=== PATIENT | female | born 1950 | race Caucasian/White ===

== ENCOUNTER → 2016-08-21 | Outpatient (CLI) | payer OTHER ==
[~2016-08-21] MED LIST: AMIT25TA9 PO; AMOX875T PO; CHOL1CAP30 PO; FENO145T26 PO; FLUT1INH PO; METO25TA3 PO; TRAM-10 PO; TRIA37.5 PO
--- NOTE | 2016-08-21 10:42 | DIAGNOSTIC IMAGING REPORT ---
RENAL ULTRASONOGRAPHY CLINICAL HISTORY: Chronic kidney disease. COMPARISON STUDY: No previous studies for comparison. FINDINGS: The right kidney measures 8.8 cm in length. Left kidney measures 8.5 cm in length. There is a 1 cm lower pole right renal cyst. There is no hydronephrosis. There is minor bilateral renal cortical thinning. No bladder abnormalities are visualized. Bilateral ureteral jets are visualized. IMPRESSION: 1. Symmetric renal size and cortical thickness 2. 1 cm left renal cyst 3. No evidence of hydronephrosis Electronically signed by: Kole Waller M.D. 08/21/2016 10:40 AM Dictated Date/Time: 08/21/2016 10:38 AM
== END | disposition home or self-care (01) ==
LOC: C.ULTR 10:07
PROVIDERS: ATTEND Internal Medicine Nephrology
DX: N18.3 Chronic kidney disease, stage 3 (moderate) (principal); N28.1 Cyst of kidney, acquired

== ENCOUNTER → 2016-09-15 | Outpatient (CLI) | payer OTHER ==
[2016-09-15 12:17] LABS: URINE APPEARANCE CLEAR (CLEAR); URINE BILIRUBIN NEG (NEG); URINE COLOR YELLOW; URINE NITRITE NEG (NEG); URINE PH 7.5 (4.5-7.5); URINE SPECIFIC GRAVITY 1.015 (1.000-1.030); UROBILINOGEN NEG (NEG)
[2016-09-15 12:27] LABS: MANUAL MICROSCOPIC REQUIRED? NO; REVIEW REQ? NO
[2016-09-15 12:33] LABS: BLOOD UREA NITROGEN 27 mg/dl (7-18); BUN/CREATININE RATIO 19.4 (10-20); CARBON DIOXIDE 29 mmol/L (21-32); CHLORIDE 105 mmol/L (98-107); GLUCOSE 94 mg/dl (70-99); SODIUM 142 mmol/L (136-145)
[2016-09-15 12:34] LABS: PHOSPHORUS 2.9 mg/dl (2.5-4.9)
[2016-09-15 12:55] LABS: URINE PROTIEN/CREAT RATIO 0.1 (0-0.2); URINE TOTAL PROTEIN 10.8 mg/dl (0-11.9)
[2016-09-15 14:40] LABS: CALCIUM 9.6 mg/dl (8.5-10.1)
== END | disposition home or self-care (01) ==
LOC: C.LABPBG 10:32
PROVIDERS: ATTEND Internal Medicine Nephrology
DX: N18.3 Chronic kidney disease, stage 3 (moderate) (principal)

== ENCOUNTER → 2016-10-28 | Outpatient (CLI) | payer OTHER ==
[2016-10-28 18:37] LABS: BLOOD UREA NITROGEN 22 mg/dl (7-18); BUN/CREATININE RATIO 14.3 (10-20); CALCIUM 9.8 mg/dl (8.5-10.1); CARBON DIOXIDE 26 mmol/L (21-32); CHLORIDE 106 mmol/L (98-107); GLUCOSE 90 mg/dl (70-99); POTASSIUM 3.7 mmol/L (3.5-5.1); SODIUM 139 mmol/L (136-145)
[2016-10-28 18:38] LABS: PHOSPHORUS 2.9 mg/dl (2.5-4.9)
== END | disposition home or self-care (01) ==
LOC: C.LABPBG 11:40
PROVIDERS: ATTEND Neuromusculoskeletal Medicine & OMM
DX: N18.3 Chronic kidney disease, stage 3 (moderate) (principal); E55.9 Vitamin D deficiency, unspecified; R53.83 Other fatigue; E53.8 Deficiency of other specified B group vitamins

== ENCOUNTER 2017-03-20 11:49 | Emergency (ER) | payer OTHER ==
[~2017-03-20] VITALS: Ht 157.5 cm; Wt 61.0 kg
[2017-03-20 12:03] VITALS: TEMP 36.4; Ht 157.5 cm; Wt 61.0 kg
[2017-03-20] MEDS ORDERED: ONDANSETRON INJ 2 MG/ML 2 ML VIAL IV STA (12:48)
[2017-03-20] MEDS ORDERED: MoRPHine SULFATE 4 MG/ML 1 ML CARP\\VIAL IV STA ×2 (12:48→13:35)
[2017-03-20] MEDS ORDERED: FENO145T26 PO (12:58)
[2017-03-20] MEDS ORDERED: TRIA37.5 PO (12:58)
[2017-03-20] MEDS ORDERED: AMIT25TA9 PO (12:58)
[2017-03-20] MEDS ORDERED: CHOL1CAP30 PO (12:58)
[2017-03-20] MEDS ORDERED: FLUT1INH PO (12:58)
[2017-03-20] MEDS ORDERED: METO25TA3 PO (12:58)
[2017-03-20 13:06] LABS: BASO % 0.4 %; BASO ABS # 0.03 K/uL (0-0.2); COMPLETE YES; EOS % 0.6 %; HEMATOCRIT 36.9 % (37-47); IG% 0.3 %; LYMPH % 34.6 %; LYMPH ABS # 2.48 K/uL (1.2-3.4); MEAN CELL VOLUME 90.2 fL (80-100); MEAN CORPUSCULAR HEMOGLOBIN 32.5 pg (25-34); MONO % 6.4 %; NEUT % 57.7 %; PLATELET COUNT 226 K/uL (130-400); RED BLOOD COUNT 4.09 M/uL (4.2-5.4); WHITE BLOOD COUNT 7.17 K/uL (4.8-10.8)
--- NOTE | 2017-03-20 13:14 | EMERGENCY ROOM VISIT NOTE ---
History Report prepared by Anita: Willem Benavides Under the Supervision of: Dr. Placido Pressley M.D. First contact with patient: 12:36 Chief Complaint: BACK PAIN Stated Complaint: BACK PAIN History of Present Illness The patient is a 66 year old female who presents to the Emergency Room with complaints of worsening left back pain for the past five days. She states that she was putting in countertops this week, so she was bent over in odd positions. The patient reports that she has been taking Tylenol and using a heating pad, and this has helped subside the pain. She denies any shortness of breath, urinary symptoms, chest pain, or recent traumas. The patient notes that her hands also went numb a few days ago, and the pain is not worsened with breathing. She has a history of stage 3 kidney disease, emphysema, hysterectomy , cholecystectomy, cyst removal from the breast, a bowel resection due to a blockage, mitral valve prolapse, and arrhythmia. The patient denies any history of kidney stones, cancer, diabetes, and she does not use any blood thinners. Source of History: patient Onset: five days ago Position: back (left) Timing: worsening Modifying Factors (Worsening): other (heat and tylenol) Associated Symptoms: + numbness, No chest pain, No SOB, No urinary symptoms Review of Systems See HPI for pertinent positives & negatives. A total of 10 systems reviewed and were otherwise negative. Past Medical & Surgical Medical Problems: (1) Arrhythmia (2) Emphysema (3) Kidney disease, chronic, stage III (GFR 30-59 ml/min) (4) Mitral valve prolapse Surgical Problems: (1) H/O: hysterectomy (2) History of bowel resection (3) Hx of cholecystectomy Old medical records were reviewed. Nurse's notes were reviewed and I agree with. Social History Smoking Status: Former Smoker Alcohol Use: none Drug Use: none Marital Status: Occupation Status: retired Current/Historical Medications Scheduled Amoxicillin & Pot Clavulanate (Augmentin 875-125 mg), 875 MG PO BID Cholecalciferol (Vitamin D3), 400 UNITS PO DAILY Fenofibrate (Tricor ), 145 MG PO DAILY Metoprolol Succinate (Toprol Xl), 25 MG PO DAILY Triamterene/Hctz (Dyazide 37.5MG/25MG), 1 TAB PO DAILY Scheduled PRN Amitriptyline Hcl (Elavil), 25 MG PO TID PRN for . Fluticasone Furoate-Vilanterol (Breo Ellipta), 1 INHA PO DAILY PRN for SOB/ Wheezing Tramadol (Ultram), 50 MG PO Q6H PRN for Pain Allergies Coded Allergies: Potassium [place] (Verified Allergy, Unknown, ., 03/20/17) Prednisone (Verified Allergy, Unknown, ., 03/20/17) Ranitidine (Verified Allergy, Unknown, ., 03/20/17) Tartrazine (Verified Allergy, Unknown, ., 03/20/17) Tetanus Toxoid (Verified Allergy, Unknown, ANAPHYLAXIS, 03/20/17) Tiotropium (Verified Allergy, Unknown, ., 03/20/17) Varenicline (Verified Allergy, Unknown, ., 03/20/17) Ibuprofen (Verified Adverse Reaction, Unknown, GI SYMPTOMS, 03/20/17) Physical Exam Vital Signs Date Time Temp Pulse Resp B/P (MAP) Pulse Ox O2 Delivery O2 Flow Rate FiO2 03/20/17 16:45 68 18 133/76 100 03/20/17 15:39 65 16 171/81 100 03/20/17 14:31 160/85 03/20/17 14:19 63 16 90 03/20/17 14:01 170/83 03/20/17 13:54 168/85 03/20/17 13:49 20 03/20/17 13:34 63 03/20/17 13:29 63 18 194/85 100 Room Air 03/20/17 13:28 194/85 03/20/17 12:03 36.4 66 18 154/92 100 Room Air Physical Exam General: Uncomfortable appearing older female complaining of back pain. HEENT: Normal cephalic atraumatic. Pupils are equal round and reactive to light. Extraocular movements are intact. Oropharynx is pink with moist mucous membranes. No swelling of the mouth lips or tongue. Neck: Supple with a midline trachea. No meningeal signs or stiffness, no JVD or bruits. No Stridor. Chest: Clear to auscultation bilaterally. No wheezes or rhonchi. No increased work of breathing. Heart: regular rate and rhythm. Abdomen: Soft nontender, nondistended without rebound guarding or rigidity. Extremities: No cyanosis clubbing or edema. No calf tenderness or assymetry Spine/Back. Tenderness in the muscle areas of the left thoracic area into the left flank. No rash or external signs of trauma. No CVA tenderness Skin: Good turgor without rashes. Neurologic exam: Cranial nerves two through 12 are intact. Motor and sensation are intact and symmetrical throughout. Medical Decision & Procedures ER Provider Diagnostic Interpretation: Radiology results as stated below per my review and radiologist interpretation: CHEST ABDOMEN AND PELVIS CT WITHOUT CONTRAST CT DOSE: 736.90 mGy.cm HISTORY: Left-sided back pain. eval for pulm porocess, spinal process. Left flank pain. TECHNIQUE: Multiaxial CT images of the chest, abdomen and pelvis were performed without contrast. A dose lowering technique was utilized adhering to the principles of ALARA. COMPARISON: Renal ultrasound 08/21/2016. FINDINGS: The heart is normal in size. No pleural or pericardial effusions. No mediastinal or hilar lymphadenopathy. Normal caliber thoracic aorta. Paraspinal soft tissues are unremarkable. No acute fractures within the visualized osseous structures. Biapical scarlike densities. The central airways are patent. No pneumothorax. Mild emphysema. A 1.7 cm focal airspace opacity within the base of the lingula. Punctate calcified granulomas within the right upper lobe. The T2-T3 vertebral bodies and posterior elements are fused. No pneumoperitoneum. No pneumatosis. Cholecystectomy. The unenhanced liver, spleen, adrenal glands, and pancreas are unremarkable. No renal or ureteral stones. No hydronephrosis. The bladder is unremarkable. The uterus is surgically absent. Paraspinal soft tissues are unremarkable. A few duodenal diverticula. Suboptimal evaluation for bowel pathology due to the lack of intravenous and oral contrast. However, there is no definite bowel wall thickening or obstruction. Colonic diverticulosis. The appendix is not identified and is likely surgically absent. No retroperitoneal lymphadenopathy. A 1 cm left renal hypodense lesion. This is incompletely characterize on this noncontrast study but favors a cyst. IMPRESSION: 1. A 1.7 cm focal airspace opacity within the periphery of the lingula. This nonspecific and could be due to developing pneumonia. However, a pulmonary infarct could also have a similar appearance. If there is clinical concern for pulmonary embolus then follow-up dedicated chest CTA is recommended. 2. No acute process identified within the abdomen or pelvis. 3. No abnormality within the paraspinal soft tissues. Electronically signed by: Faisal Lagos M.D. 03/20/2017 2:56 PM Dictated Date/Time: 03/20/2017 1:54 PM CHEST ABDOMEN AND PELVIS CT WITHOUT CONTRAST CT DOSE: 736.90 mGy.cm HISTORY: Left-sided back pain. eval for pulm porocess, spinal process. Left flank pain. TECHNIQUE: Multiaxial CT images of the chest, abdomen and pelvis were performed without contrast. A dose lowering technique was utilized adhering to the principles of ALARA. COMPARISON: Renal ultrasound 08/21/2016. FINDINGS: The heart is normal in size. No pleural or pericardial effusions. No mediastinal or hilar lymphadenopathy. Normal caliber thoracic aorta. Paraspinal soft tissues are unremarkable. No acute fractures within the visualized osseous structures. Biapical scarlike densities. The central airways are patent. No pneumothorax. Mild emphysema. A 1.7 cm focal airspace opacity within the base of the lingula. Punctate calcified granulomas within the right upper lobe. The T2-T3 vertebral bodies and posterior elements are fused. No pneumoperitoneum. No pneumatosis. Cholecystectomy. The unenhanced liver, spleen, adrenal glands, and pancreas are unremarkable. No renal or ureteral stones. No hydronephrosis. The bladder is unremarkable. The uterus is surgically absent. Paraspinal soft tissues are unremarkable. A few duodenal diverticula. Suboptimal evaluation for bowel pathology due to the lack of intravenous and oral contrast. However, there is no definite bowel wall thickening or obstruction. Colonic diverticulosis. The appendix is not identified and is likely surgically absent. No retroperitoneal lymphadenopathy. A 1 cm left renal hypodense lesion. This is incompletely characterize on this noncontrast study but favors a cyst. IMPRESSION: 1. A 1.7 cm focal airspace opacity within the periphery of the lingula. This nonspecific and could be due to developing pneumonia. However, a pulmonary infarct could also have a similar appearance. If there is clinical concern for pulmonary embolus then follow-up dedicated chest CTA is recommended. 2. No acute process identified within the abdomen or pelvis. 3. No abnormality within the paraspinal soft tissues. Electronically signed by: Faisal Lagos M.D. 03/20/2017 2:56 PM Dictated Date/Time: 03/20/2017 1:[address] ANGIOGRAM OF THE CHEST CLINICAL HISTORY: Atypical chest and back pain. ABNORMAL NONCONTRAST CHEST CT. COMPARISON STUDY: Noncontrast chest CT performed earlier in the day TECHNIQUE: Following the IV administration of 81 mL of Optiray-320, CT angiogram of the thorax was performed from the thoracic inlet to the lung bases utilizing the pulmonary embolus protocol. Images are reviewed in the axial, sagittal, and coronal planes. IV contrast was administered without complication. MIP imaging was performed. A dose lowering technique was utilized adhering to the principles of ALARA. CT DOSE: 202.10 mGy.cm FINDINGS: No pathologically enlarged axillary mediastinal or hilar lymph nodes were visualized. There was no evidence of thoracic aortic dilatation. There were no pulmonary artery filling defects to indicate acute pulmonary embolism. No pleural effusions are visualized. There is a 17 mm nodular pleural-based airspace opacity within the inferior lingula. Short-term follow-up subsequent to antibiotic therapy is recommended. There is pulmonary emphysema. There is biapical pleural and parenchymal scarring. IMPRESSION: 1. No evidence of acute pulmonary embolism 2. No evidence of pathologic adenopathy 3. 17 mm pleural-based opacity within the base of the lingula. Short-term CT follow-up subsequent antibiotic therapy is recommended. Electronically signed by: Kole Waller M.D. 03/20/2017 3:48 PM Dictated Date/Time: 03/20/2017 3:41 PM Laboratory Results 03/20/17 12:50 Red Blood Count 4.09, Mean Corpuscular Volume 90.2, Mean Corpuscular Hemoglobin 32.5, Mean Corpuscular Hemoglobin Concent 36.0, Mean Platelet Volume 10.0, Neutrophils (%) (Auto) 57.7, Lymphocytes (%) (Auto) 34.6, Monocytes (%) (Auto) 6.4, Eosinophils (%) (Auto) 0.6, Basophils (%) (Auto) 0.4, Neutrophils # (Auto) 4.14, Lymphocytes # (Auto) 2.48, Monocytes # (Auto) 0.46, Eosinophils # (Auto) 0.04, Basophils # (Auto) 0.03 03/20/17 12:50 Test 03/20/17 12:20 03/20/17 12:50 03/20/17 12:57 Urine Color YELLOW Urine Appearance CLEAR (CLEAR) Urine pH 8.5 (4.5-7.5) Urine Specific [place] 1.013 (1.000-1.030) Urine Protein NEG (NEG) Urine Glucose (UA) NEG (NEG) Urine Ketones NEG (NEG) Urine Occult Blood NEG (NEG) Urine Nitrite NEG (NEG) Urine Bilirubin NEG (NEG) Urine Urobilinogen NEG (NEG) Urine Leukocyte Esterase NEG (NEG) White Blood Count 7.17 K/uL (4.8-10.8) Red Blood Count 4.09 M/uL (4.2-5.4) Hemoglobin 13.3 g/dL (12.0-16.0) Hematocrit 36.9 % (37-47) Mean Corpuscular Volume 90.2 fL (80-100) Mean Corpuscular Hemoglobin 32.5 pg (25-34) Mean Corpuscular Hemoglobin Concent 36.0 g/dl (32-36) Platelet Count 226 K/uL (130-400) Mean Platelet Volume 10.0 fL (7.4-10.4) Neutrophils (%) (Auto) 57.7 % Lymphocytes (%) (Auto) 34.6 % Monocytes (%) (Auto) 6.4 % Eosinophils (%) (Auto) 0.6 % Basophils (%) (Auto) 0.4 % Neutrophils # (Auto) 4.14 K/uL (1.4-6.5) Lymphocytes # (Auto) 2.48 K/uL (1.2-3.4) Monocytes # (Auto) 0.46 K/uL (0.11-0.59) Eosinophils # (Auto) 0.04 K/uL (0-0.5) Basophils # (Auto) 0.03 K/uL (0-0.2) RDW Standard Deviation 40.3 fL (36.4-46.3) RDW Coefficient of Variation 12.4 % (11.5-14.5) Immature Granulocyte % (Auto) 0.3 % Immature Granulocyte # (Auto) 0.02 K/uL (0.00-0.02) Anion Gap 11.0 mmol/L (3-11) Est Creatinine Clear Calc Drug Dose 34.8 ml/min Estimated GFR () 47.5 Estimated GFR (Non- 41.0 BUN/Creatinine Ratio 15.9 (10-20) Calcium Level 10.2 mg/dl (8.5-10.1) Total Bilirubin 0.9 mg/dl (0.2-1) Direct Bilirubin 0.2 mg/dl (0-0.2) Aspartate Amino Transf (AST/SGOT) 22 U/L (15-37) Alanine Aminotransferase (ALT/SGPT) 23 U/L (12-78) Alkaline Phosphatase 106 U/L (45-117) Total Protein 8.6 gm/dl (6.4-8.2) Albumin 4.8 gm/dl (3.4-5.0) Lipase 122 U/L (73-393) Bedside Troponin I < 0.030 ng/ml (0-0.045) Laboratory studies as stated above per my review. Medications Administered Medications (Trade) Dose Ordered Sig/Elie Route Start Time Stop Time Status Last Admin Dose Admin Morphine Sulfate (MoRPHine SULFATE INJ) 4 mg NOW STAT IV 03/20/17 12:48 03/20/17 12:52 DC 03/20/17 13:03 4 MG Ondansetron HCl (Zofran Inj) 4 mg NOW STAT IV 03/20/17 12:48 03/20/17 12:52 DC 03/20/17 13:02 4 MG Morphine Sulfate (MoRPHine SULFATE INJ) 4 mg NOW STAT IV 03/20/17 13:35 03/20/17 13:36 DC 03/20/17 13:46 4 MG Potassium Chloride (Klor-Con M10) 40 meq NOW STAT PO 03/20/17 13:36 03/20/17 13:38 DC 03/20/17 13:45 40 MEQ Amoxicillin/ Clavulanate Potassium (Augmentin 875MG Home Pack) 1 homepack UD ONCE PO 03/20/17 16:30 03/20/17 16:37 DC 03/20/17 16:42 1 HOMEPACK Tramadol HCl (Ultram Home Pack) 1 homepack UD ONCE PO 03/20/17 16:30 03/20/17 16:37 DC 03/20/17 16:42 1 HOMEPACK ECG Indication: back/shoulder pain Rate (beats per minute): 63 Rhythm: normal sinus Findings: RBBB (incomplete), no acute ischemic change, no ectopy ED Course 1236: Past medical records reviewed. The patient was evaluated in room A4, and a complete history and physical examination were performed. 1248: Zofran 4mg IV, Morphine Sulfate 4mg IV 1317: I went to reevaluate the patient, and she was over at CT scan. 1335: Morphine Sulfate 4mg IV 1336: Potassium Chloride 40meq PO 1339: I reevaluated the patient, and she is having more pain. 1527: I reevaluated the patient, and I explained the risks and benefits of getting more CT scans, and she was agreeable. 1625: Upon reevaluation, the patient is feeling better. I discussed the results and treatment plan with her. She verbalized agreement of the treatment plan. The patient was discharged home. 1630: Tramadol HCl 1 Home Pack PO, Augmentin 875mg Home Pack PO Medical Decision Differentials include, but are not limited to; musculoskeletal pain, kidney stone, shingles, electrolyte or metabolic abnormality. This patient comes in as described above. She was placed in room A4. She is here for treatment and evaluation of pain in her left back. She was doing a lot of bending recently when they're placing counters and there is no trauma does extend into the abdomen at times and goes up higher and lower. No chest pain or shortness of breath. No trauma. No numbness weakness. She has to suggest change in bowel or bladder function or cauda equina syndrome. IV access established. She is not driving. She was given morphine 4 mg IV and Zofran 4 milligrams IV. She required additional IV morphine. She has no white count or fever to suggest infection. Her potassium was low at 2.9. She was repleted by mouth. CAT scans were obtained. Urinalysis does not suggest a urinary process. CAT scans show no acute traumatic finding however she does have a small area in the lingula which could be pneumonia or possibly a pulmonary infarct they recommended a CT angiogram. I did extend the risk and benefits patient family freely consent it shows no PE. I will start on antibiotics for the possibility of an early pneumonia. She has had COPD and could be some scarring. She is given Augmentin 875 twice a day. She has had Ultram before and I gave her prescription for this for pain she was warned that it could make her drowsy, do not take before drinking, driving, working. She has nothing to suggest cardiac disease and her EKG is unremarkable. I think most of her pain today is actually more musculoskeletal. I did encourage close follow-up on Wednesday for recheck or return here over the weekend for worsening symptoms. She should increase her dietary potassium. She was happy with the plan and discharged to home. Medication Reconcilliation Current Medication List: was personally reviewed by me Blood Pressure Screening Patient's blood pressure: Elevated blood pressure Blood pressure disposition: Referred to PCP Impression Primary Impression: Left flank pain Additional Impression: Pneumonia Scribe Attestation The scribe's documentation has been prepared under my direction and personally reviewed by me in its entirety. I confirm that the note above accurately reflects all work, treatment, procedures, and medical decision making performed by me. Departure Information Dispostion Home / Self-Care Prescriptions Tramadol (Ultram) 50 Mg Tab 50 MG PO Q6H Y for Pain, #14 TAB Prov: Placido Pressley M.D. 03/20/17 Amoxicillin & Pot Clavulanate (Augmentin 875-125 mg) 1 Tab Tab 875 MG PO BID for 10 Days, #20 TAB Prov: Placido Pressley M.D. 03/20/17 Referrals Naz Harper DO (PCP) Forms HOME CARE DOCUMENTATION FORM, IMPORTANT VISIT INFORMATION Patient Instructions My [facility] Additional Instructions Rest Drink plenty of fluids Use Augmentin 875 mg twice a day for 10 daysantibiotic for possible pneumonia You will need follow-up with her regular doctor and will need a follow-up CAT scan in the future to further evaluate your lungs. Use Tramadol (Ultram) 50 mg- 1 pills every 6 hours as needed Ultram make you drowsy and be careful after taking return if: Increasing pain, shortness of breath, fever or chills, worsening symptoms, any new problems or concerns. Problem Qualifiers
[2017-03-20 13:21] LABS: URINE APPEARANCE CLEAR (CLEAR); URINE BILIRUBIN NEG (NEG); URINE COLOR YELLOW; URINE NITRITE NEG (NEG); URINE PH 8.5 (4.5-7.5); URINE SPECIFIC GRAVITY 1.013 (1.000-1.030); UROBILINOGEN NEG (NEG)
[2017-03-20 13:23] LABS: MANUAL MICROSCOPIC REQUIRED? NO; REVIEW REQ? NO
[2017-03-20 13:28] LABS: BUN/CREATININE RATIO 15.9 (10-20); CALCIUM 10.2 mg/dl (8.5-10.1); CREATININE 1.33 mg/dl (0.60-1.20); POTASSIUM 2.9 mmol/L (3.5-5.1)
[2017-03-20] MEDS ORDERED: POTASSIUM CHLORIDE 10 MEQ TABCR PO STA (13:36)
--- NOTE | 2017-03-20 14:58 | DIAGNOSTIC IMAGING REPORT ---
CHEST ABDOMEN AND PELVIS CT WITHOUT CONTRAST CT DOSE: 736.90 mGy.cm HISTORY: Left-sided back pain. eval for pulm porocess, spinal process. Left flank pain. TECHNIQUE: Multiaxial CT images of the chest, abdomen and pelvis were performed without contrast. A dose lowering technique was utilized adhering to the principles of ALARA. COMPARISON: Renal ultrasound 08/21/2016. FINDINGS: The heart is normal in size. No pleural or pericardial effusions. No mediastinal or hilar lymphadenopathy. Normal caliber thoracic aorta. Paraspinal soft tissues are unremarkable. No acute fractures within the visualized osseous structures. Biapical scarlike densities. The central airways are patent. No pneumothorax. Mild emphysema. A 1.7 cm focal airspace opacity within the base of the lingula. Punctate calcified granulomas within the right upper lobe. The T2-T3 vertebral bodies and posterior elements are fused. No pneumoperitoneum. No pneumatosis. Cholecystectomy. The unenhanced liver, spleen, adrenal glands, and pancreas are unremarkable. No renal or ureteral stones. No hydronephrosis. The bladder is unremarkable. The uterus is surgically absent. Paraspinal soft tissues are unremarkable. A few duodenal diverticula. Suboptimal evaluation for bowel pathology due to the lack of intravenous and oral contrast. However, there is no definite bowel wall thickening or obstruction. Colonic diverticulosis. The appendix is not identified and is likely surgically absent. No retroperitoneal lymphadenopathy. A 1 cm left renal hypodense lesion. This is incompletely characterize on this noncontrast study but favors a cyst. IMPRESSION: 1. A 1.7 cm focal airspace opacity within the periphery of the lingula. This nonspecific and could be due to developing pneumonia. However, a pulmonary infarct could also have a similar appearance. If there is clinical concern for pulmonary embolus then follow-up dedicated chest CTA is recommended. 2. No acute process identified within the abdomen or pelvis. 3. No abnormality within the paraspinal soft tissues. Electronically signed by: Faisal Lagos M.D. 03/20/2017 2:56 PM Dictated Date/Time: 03/20/2017 1:54 PM
[2017-03-20] MEDS ORDERED: OPTIRAY 320 IV PRN (15:30)
--- NOTE | 2017-03-20 15:49 | DIAGNOSTIC IMAGING REPORT ---
CT ANGIOGRAM OF THE CHEST CLINICAL HISTORY: Atypical chest and back pain. ABNORMAL NONCONTRAST CHEST CT. COMPARISON STUDY: Noncontrast chest CT performed earlier in the day TECHNIQUE: Following the IV administration of 81 mL of Optiray-320, CT angiogram of the thorax was performed from the thoracic inlet to the lung bases utilizing the pulmonary embolus protocol. Images are reviewed in the axial, sagittal, and coronal planes. IV contrast was administered without complication. MIP imaging was performed. A dose lowering technique was utilized adhering to the principles of ALARA. CT DOSE: 202.10 mGy.cm FINDINGS: No pathologically enlarged axillary mediastinal or hilar lymph nodes were visualized. There was no evidence of thoracic aortic dilatation. There were no pulmonary artery filling defects to indicate acute pulmonary embolism. No pleural effusions are visualized. There is a 17 mm nodular pleural-based airspace opacity within the inferior lingula. Short-term follow-up subsequent to antibiotic therapy is recommended. There is pulmonary emphysema. There is biapical pleural and parenchymal scarring. IMPRESSION: 1. No evidence of acute pulmonary embolism 2. No evidence of pathologic adenopathy 3. 17 mm pleural-based opacity within the base of the lingula. Short-term CT follow-up subsequent antibiotic therapy is recommended. Electronically signed by: Kole Waller M.D. 03/20/2017 3:48 PM Dictated Date/Time: 03/20/2017 3:41 PM
[2017-03-20] MEDS ORDERED: TRAMADOL HCL 50 MG HOME PACK PO ONE (16:30)
[2017-03-20] MEDS ORDERED: AMOXICIL/CLAVU 875MG HOME PACK PO ONE (16:30)
[2017-03-20] MEDS ORDERED: TRAM-10 PO (16:34)
[2017-03-20] MEDS ORDERED: AMOX875T PO (16:34)
[2017-03-20 16:45] VITALS: BP 133/76; PULSE 68; O2SAT 100
== END 2017-03-20 16:47 | disposition home or self-care (01) ==
LOC: C.EDB 11:51 → C.EDA 16:47
DX: R10.9 Unspecified abdominal pain (principal); J18.9 Pneumonia, unspecified organism; N18.3 Chronic kidney disease, stage 3 (moderate); I49.9 Cardiac arrhythmia, unspecified; I34.1 Nonrheumatic mitral (valve) prolapse; J43.9 Emphysema, unspecified; Z87.891 Personal history of nicotine dependence; Z79.899 Other long term (current) drug therapy

== ENCOUNTER → 2017-03-23 | Outpatient (CLI) | payer OTHER ==
[2017-03-23 12:04] LABS: MANUAL MICROSCOPIC REQUIRED? NO; URINE APPEARANCE CLEAR (CLEAR); URINE BILIRUBIN NEG (NEG); URINE COLOR YELLOW; URINE NITRITE NEG (NEG); URINE PH 7.5 (4.5-7.5); UROBILINOGEN NEG (NEG)
[2017-03-23 12:15] LABS: REVIEW REQ? NO; SULFASALICYLIC ACID NEG (NEG)
[2017-03-23 12:20] LABS: BLOOD UREA NITROGEN 22 mg/dl (7-18); BUN/CREATININE RATIO 15.4 (10-20); CALCIUM 9.8 mg/dl (8.5-10.1); CARBON DIOXIDE 28 mmol/L (21-32); CHLORIDE 101 mmol/L (98-107); CREATININE 1.43 mg/dl (0.60-1.20); GLUCOSE 97 mg/dl (70-99); MAGNESIUM 1.8 mg/dl (1.8-2.4); POTASSIUM 3.7 mmol/L (3.5-5.1); SODIUM 137 mmol/L (136-145)
== END | disposition home or self-care (01) ==
LOC: C.LABPBG 10:07
PROVIDERS: ATTEND Family Medicine
DX: N18.3 Chronic kidney disease, stage 3 (moderate) (principal); E87.6 Hypokalemia

== ENCOUNTER → 2017-04-16 | Outpatient (CLI) | payer OTHER ==
[~2017-04-16] MED LIST changes: -AMOX875T PO
--- NOTE | 2017-04-16 10:34 | DIAGNOSTIC IMAGING REPORT ---
(CHEST) THORAX WITHOUT CT DOSE: 226.40 mGy.cm HISTORY: Lung nodule R93.8 Abnormal chest [id number] TECHNIQUE: Multiaxial CT images of the chest were performed without contrast. A dose lowering technique was utilized adhering to the principles of ALARA. COMPARISON: 03/20/2017 FINDINGS: Unchanging pleural and parenchymal scarring of the pulmonary apices. Calcified granuloma transaxial image 14 unchanged. No change in the 17 mm irregular nodular density base of the lingula area in there are no new or interval changes. There are no new findings. Limited evaluation the upper abdomen shows evidence for prior cholecystectomy. IMPRESSION: 1. Unchanging 17 mm irregular nodular density of the lingula. 2. The remainder of the chest is negative. 3. Considerations must include the possibility of pulmonary infarct, inflammatory process, versus neoplastic process. 4. Potential follow-up includes a short-term CT follow-up at 4 to 8 weeks, PET scan, versus bronchoscopy. The above report was generated using voice recognition software. It may contain grammatical, syntax or spelling errors. Electronically signed by: Bossman Leon M.D. 04/16/2017 10:26 AM Dictated Date/Time: 04/16/2017 10:20 AM
== END | disposition home or self-care (01) ==
LOC: C.CTS 09:11
PROVIDERS: ATTEND Family Medicine
DX: R93.8 Abnormal findings on diagnostic imaging of other specified body structures (principal); R91.8 Other nonspecific abnormal finding of lung field

== ENCOUNTER → 2017-07-07 | Outpatient (CLI) | payer OTHER ==
[~2017-07-07] MED LIST changes: -METO25TA3 PO; +METO25TA4 PO
--- NOTE | 2017-07-07 13:55 | DIAGNOSTIC IMAGING REPORT ---
PET/CT SKULL-THIGH HISTORY: Lung nodule SOLITARY PULMONARY NODULE TECHNIQUE: PET/CT was performed from the base of the skull through the pelvis following the intravenous administration of 15.4 mCi of F18-FDG. Non-contrast CT imaging was performed over the same range without breath-hold for attenuation correction of PET images and anatomic correlation, but not for primary interpretation as it is not of standard diagnostic quality. CT DOSE: COMPARISON: CT chest dated 03/20/2017. CT abdomen and pelvis dated 06/07/2012. FINDINGS: HEAD AND NECK: There is no FDG-avid disease or significant lymphadenopathy in the imaged portions of the head and the neck. CHEST: Apical fibrotic scarring showing no significant increase in metabolic activity. Physiologic activity within the myocardium. No abnormal hilar or mediastinal activity. The nodular density within the lingula shows a low level increased activity with an SUV of 1.5. As this appears to represent a slowly growing nodular density as compared to the prior study at 2012, possibly of a low grade neoplastic process must be considered. No additional foci of increased metabolic activity are noted. ABDOMEN/PELVIS: Below the diaphragm, tracer is distributed physiologically in the gastrointestinal and genitourinary tracts. There is no significant lymphadenopathy and no FDG-avid disease. MUSCULOSKELETAL: Minimal scattered degenerative activity. No evidence based on this study for metastatic bone disease. IMPRESSION: 1. 1.5 x 1.7 cm nodular density within the lingula demonstrates a minimal increase in SUV activity characteristics at 1.5 2. Correlation with prior studies dated 2016 as well as outside CT exams dated 2012 demonstrate a slowly progressive nodular process. 3. Accordingly, this nodule must be considered a slow-growing low-grade neoplastic process until proven otherwise. 4. Remainder the study is unremarkable. The above report was generated using voice recognition software. It may contain grammatical, syntax or spelling errors. Electronically signed by: Bossman Leon M.D. 07/07/2017 1:53 PM Dictated Date/Time: 07/07/2017 1:39 PM
== END | disposition home or self-care (01) ==
LOC: C.PET 10:38
PROVIDERS: ATTEND Internal Medicine Critical Care Medicine
DX: R91.1 Solitary pulmonary nodule (principal)

== ENCOUNTER → 2017-08-02 | Outpatient (CLI) | payer OTHER ==
[~2017-08-02] MED LIST changes: +ALBUAER INH; +CHOL1000 PO; +CRFL PO; +FLUT0.15 INTNAS; +FLUT1INH INH; +GADAVIST IV PRN; +HALO0.0510 TOP; +MECL1TAB40 PO; +TRIATAB3 PO
[2017-08-02 15:18] LABS: BLOOD UREA NITROGEN 29 mg/dl (7-18); CREATININE 1.43 mg/dl (0.60-1.20)
--- NOTE | 2017-08-02 15:51 | DIAGNOSTIC IMAGING REPORT ---
MRI OF THE BRAIN WITHOUT AND WITH IV CONTRAST CLINICAL HISTORY: Lung nodule. Evaluate for metastatic disease. COMPARISON STUDY: No previous studies for comparison. TECHNIQUE: Utilizing a 1.5 Linda magnet and dedicated coil, multiplanar, multiecho imaging of the brain was performed pre and postcontrast administration. IV administration of 5.8 mL of Gadavist contrast was uneventful. FINDINGS: There are no foci of restricted diffusion. No acute intracranial hemorrhage, midline shift or mass effect is present. Brain volume is normal for age. Ventricular system is normal. Basilar cisterns are patent. There are no extra-axial collections. Flow-voids for the major intracranial vessels are present. There is no intracranial mass or pathologic enhancement. Scattered white matter T2 hyperintense foci suggest mild small vessel disease. There are no calvarial lesions. Sinuses and orbits are unremarkable. IMPRESSION: 1. No evidence of metastatic disease. 2. Several white matter T2 hyperintense foci which suggest minimal small vessel disease. Electronically signed by: Toni Will M.D. 08/02/2017 3:50 PM Dictated Date/Time: 08/02/2017 3:46 PM
== END | disposition home or self-care (01) ==
LOC: C.MRIBC 12:02
PROVIDERS: ATTEND Physician Assistant
DX: R91.1 Solitary pulmonary nodule (principal); N18.3 Chronic kidney disease, stage 3 (moderate); R93.8 Abnormal findings on diagnostic imaging of other specified body structures

== ENCOUNTER 2017-09-01 09:47 | Inpatient (IN) | payer OTHER ==
[2017-08-04 14:55] VITALS: BMI 22.0
[2017-08-04 15:14] VITALS: Ht 162.6 cm; Wt 59.4 kg
--- NOTE | 2017-08-04 15:34 | PAT Medication Instructions ---
Service Date Aug 04, 2017. Current Home Medication List Albuterol Sulfate (Proventil Hfa), 2 PUFFS INH PRN Amitriptyline Hcl (Elavil), 25 MG PO TID PRN for . Cholecalciferol (Vitamin D3), 1 TAB PO QAM Fluticasone Furoate-Vilanterol (Breo Ellipta), 1 PUFF INH QAM Fluticasone Propionate (Nasal) (Flonase Allergy Relief), 2 SPRAYS INTNAS QAM Halobetasol Propionate (Halobetasol Propionate), 1 DOSE TOP PRN Meclizine HCl (Meclizine HCl), 1 TAB PO BID PRN for RN Metoprolol Succinate (Toprol Xl), 25 MG PO QAM Sucralfate (Carafate), 10 ML PO QID Tramadol (Ultram), 50 MG PO Q6H PRN for RN Triamterene/Hctz (Triamterene/Hctz 37.5-25MG), 1 TAB PO QAM Medication Instructions For Your Scheduled Surgery - Hold the following medications 24 hours prior to surgery: Halobetasol Propionate (Halobetasol Propionate), 1 DOSE TOP PRN - Hold the following medications the morning of surgery: Cholecalciferol (Vitamin D3), 1 TAB PO QAM Sucralfate (Carafate), 10 ML PO QID Triamterene/Hctz (Triamterene/Hctz 37.5-25MG), 1 TAB PO QAM - Take the following medications the morning of surgery with a sip of water: Albuterol Sulfate (Proventil Hfa), 2 PUFFS INH PRN (if needed, and bring it with you to the hospital) Amitriptyline Hcl (Elavil), 25 MG PO TID PRN (if needed) Fluticasone Furoate-Vilanterol (Breo Ellipta), 1 PUFF INH QAM Fluticasone Propionate (Nasal) (Flonase Allergy Relief), 2 SPRAYS INTNAS QAM Meclizine HCl (Meclizine HCl), 1 TAB PO BID PRN for RN (if needed) Metoprolol Succinate (Toprol Xl), 25 MG PO QAM Tramadol (Ultram), 50 MG PO Q6H PRN for RN (if needed) - Take the following medications as scheduled the night before surgery: Albuterol Sulfate (Proventil Hfa), 2 PUFFS INH PRN (if needed) Amitriptyline Hcl (Elavil), 25 MG PO TID PRN (if needed) Meclizine HCl (Meclizine HCl), 1 TAB PO BID PRN for RN (if needed) Sucralfate (Carafate), 10 ML PO QID Tramadol (Ultram), 50 MG PO Q6H PRN for RN (if needed) If you have any questions please call us at [phone] or [phone] or [phone]
[2017-08-04 15:56] LABS: BASO % 0.3 %; BASO ABS # 0.03 K/uL (0-0.2); EOS % 0.7 %; EOS ABS # 0.08 K/uL (0-0.5); HEMATOCRIT 36.9 % (37-47); HEMOGLOBIN 13.1 g/dL (12.0-16.0); IG# 0.02 K/uL (0.00-0.02); LYMPH % 18.5 %; LYMPH ABS # 2.17 K/uL (1.2-3.4); MEAN CELL VOLUME 91.3 fL (80-100); MEAN CORPUSCULAR HEMOGLOBIN 32.4 pg (25-34); MEAN CORPUSCULAR HGB CONC 35.5 g/dl (32-36); MEAN PLATELET VOLUME 10.3 fL (7.4-10.4); MONO % 4.2 %; MONO ABS # 0.49 K/uL (0.11-0.59); NEUT % 76.1 %; NEUT ABS # 8.92 K/uL (1.4-6.5); PLATELET COUNT 208 K/uL (130-400); RED CELL DISTRIBUTION WIDTH CV 12.4 % (11.5-14.5); RED CELL DISTRIBUTION WIDTH SD 41.9 fL (36.4-46.3); WHITE BLOOD COUNT 11.71 K/uL (4.8-10.8)
[2017-08-04 16:44] LABS: CALCIUM 9.6 mg/dl (8.5-10.1); CREATININE 1.12 mg/dl (0.60-1.20); POTASSIUM 3.8 mmol/L (3.5-5.1)
[~2017-09-01] VITALS: Ht 162.6 cm; Wt 59.4 kg
[2017-09-01] VITALS (10 sets, daily range): BP systolic 95–156; BP diastolic 53–80; PULSE 56–86; TEMP 33.3–37; O2SAT 94–100
[~2017-09-01 09:47] MED LIST changes: -CHOL1CAP30 PO; +DEXAMETHASONE SOD INJ 4 MG/ML VIAL ONE; +EpHEDrine SULFATE INJ 50 MG/ML AMP ONE; -FENO145T26 PO; +FENTANYL CITRATE INJ 50 MCG/1 ML 2 ML VIAL ONE; -FLUT1INH PO; -GADAVIST IV PRN; +GLYCOPYRROLATE INJ 0.2 MG/ML VIAL ONE; -HALO0.0510 TOP; +LACTATED RINGER'S 1000ML 1,000 ML IV SCH; +LIDOCAINE HCL 2% 2 ML VIAL (20MG/ML) ONE; +MIDAZOLAM HCL 1 MG/ML 2ML VIAL ONE; +NEOSTIGMINE METHYLSULFATE 5 MG/5 ML SYR ONE; +ONDANSETRON INJ 2 MG/ML 2 ML VIAL ONE; +PHENYLEPHRINE 100MCG/ML 5ML SYR ONE; +PROPOFOL IV EMULSION 10 MG/ML 20 ML VIAL ONE; +ROCURONIUM BROMIDE 10 MG/ML 5 ML VIAL ONE; -TRIA37.5 PO; +[UNRECOGNIZED DRUG - CODE] TOP
--- NOTE | 2017-09-01 11:42 | History & Physical Bridge Note ---
H&P Re-Evaluation Bridge Note: I have examined the patient, reviewed the History & Physical and in the interval since the performance of the History & Physical I have noted the following changes of clinical significance: No changes noted
[2017-09-01] MEDS ORDERED: CLINDAMYCIN PHOS 150 MG/ML 2 ML VIAL ONE (11:46)
[2017-09-01] MEDS ORDERED: SODIUM CHLORIDE 0.9% PF 50 ML VIAL ONE (12:01)
[2017-09-01] MEDS ORDERED: BUPIVACAINE LIPOSOME 1/3% 266 MG/20 ML VIAL ONE (12:01)
[2017-09-01] MEDS ORDERED: BUPIVACAINE 0.5 % 5 MG/1 ML MPF 30ML VIAL ONE (12:01)
--- NOTE | 2017-09-01 12:05 | History and Physical ---
History & Physical Date September 01, 2017. History of Present Illness The patient is a 66 year old female with complaints of a serendipitously found left upper lobe nodule.We have worked her up. She is an operative candidate. We saw her several weeks ago and scheduled her for a wedge resection and probable left upper lobectomy. She developed flu-like symptoms and was cancelled. She has had resolution of these symptoms and we are going to proceed with surgery. She understands the risks and benefits. Discussed with family. Past Medical/Surgical History Medical Problems: (1) Arrhythmia (2) Emphysema (3) Kidney disease, chronic, stage III (GFR 30-59 ml/min) (4) Mitral valve prolapse Surgical Problems: (1) H/O: hysterectomy (2) History of bowel resection (3) Hx of cholecystectomy Additional History Hepatic Disease: No Endocrine Disorder: No Kidney Disease: No Hypertension: No Heart Disease: No Bleeding Tendencies: No Infectious Diseases: No Allergies Coded Allergies: Tetanus Toxoid (Verified Allergy, Severe, ANAPHYLAXIS, 09/01/17) Prednisone (Verified Allergy, Unknown, UNKNOWN, 09/01/17) Tartrazine (Verified Allergy, Unknown, UNKNOWN, 09/01/17) Tiotropium (Verified Allergy, Unknown, UNKNOWN, 09/01/17) Varenicline (Verified Allergy, Unknown, UNKNOWN, 09/01/17) Ibuprofen (Verified Adverse Reaction, Mild, GI SYMPTOMS, 09/01/17) Potassium [place] (Verified Adverse Reaction, Mild, HEADACHE, 09/01/17) Ranitidine (Verified Adverse Reaction, Mild, MIGRAINES, 09/01/17) Home Medications Scheduled Albuterol Sulfate (Proventil Hfa), 2 PUFFS INH PRN Cholecalciferol (Vitamin D3), 1 TAB PO QAM Fluticasone Furoate-Vilanterol (Breo Ellipta), 1 PUFF INH QAM Fluticasone Propionate (Nasal) (Flonase Allergy Relief), 2 SPRAYS INTNAS QAM Halobetasol Propionate (Halobetasol Propionate), 1 DOSE TOP PRN Metoprolol Succinate (Toprol Xl), 25 MG PO QAM Sucralfate (Carafate), 10 ML PO QID Triamterene/Hctz (Triamterene/Hctz 37.5-25MG), 1 TAB PO QAM Scheduled PRN Amitriptyline Hcl (Elavil), 25 MG PO TID PRN for . Meclizine HCl (Meclizine HCl), 1 TAB PO BID PRN for RN Tramadol (Ultram), 50 MG PO Q6H PRN for RN Physical Examination Skin: warm/dry, no rash Eyes: normal inspection, EOMI, sclerae normal ENT: normal ENT inspection, pharynx normal Head: normocephalic, atraumatic Neck: supple, no adenopathy, trachea midline Respiratory/Chest: lungs clear, normal breath sounds, no respiratory distress Cardiovascular: regular rate, rhythm, no edema, no murmur Abdomen / GI: normal bowel sounds, non tender Back: normal inspection Extremities: normal inspection, normal range of motion Neurologic/Psych: no motor/sensory deficits, alert, normal reflexes, oriented x 3 Diagnosis Left upper lobe mass Plan of Treatment Wedge resection, Probable robot assisted thoracoscopic left upper lobectomy.
[2017-09-01] MEDS ORDERED: CEFAZOLIN SOD 1 GM VIAL ONE (12:29)
[2017-09-01] MEDS ORDERED: EpHEDrine SULFATE INJ 50 MG/ML AMP ONE (13:25)
[2017-09-01] MEDS ORDERED: PHENYLEPHRINE HCL INJ 10 MG/ML VIAL ONE (15:19)
[2017-09-01] MEDS ORDERED: ROCURONIUM BROMIDE 10 MG/ML 5 ML VIAL ONE (15:36)
[2017-09-01] MEDS ORDERED: TISSEEL FIBRIN SEALANT 10ML TOP ONE (16:15)
--- NOTE | 2017-09-01 16:18 | [facility] Post Operative Brief Note ---
Immediate Operative Summary Operative Date September 01, 2017. Pre-Operative Diagnosis Left upper lung nodule Post-Operative Diagnosis Adenocarcinoma, left upper lobe Procedure(s) Performed Left Robot assisted Thoracoscopic wedge resection LACEY, Left upper lobectomy, mediastinal lymph node biopsy Surgeon Dr Johnson Rand Maker Surgeon(s) Juvenal Fontenot PA-C Estimated Blood Loss 75mL Findings Consistent with Post-Op Diagnosis Specimens Frozen section #1 left lingular [place] sent [place] 1341pathologist notified Dr Johnson of results A. L8 lymph node B. L9 lymph node C. L11 lymph node D. L12 lymph node E. Level 5 lymph node F. L10 lymph node x2 G. L12 Lymph node x2 H. L11 Lymph node x2 Drains One 24 fr. chest tube Anesthesia Type General
[2017-09-01] MEDS ORDERED: METOCLOPRAMIDE HCL INJ 5 MG/ML 2 ML VIAL IV. STA (16:27)
[2017-09-01] MEDS ORDERED: MECLIZINE HCL 12.5 MG TAB PO PRN (16:30)
[2017-09-01] MEDS ORDERED: ONDANSETRON INJ 2 MG/ML 2 ML VIAL IV PRN (16:30)
[2017-09-01] MEDS ORDERED: AMITRIPTYLINE HCL 25 MG TAB PO PRN (16:30)
--- NOTE | 2017-09-01 17:32 | DIAGNOSTIC IMAGING REPORT ---
SINGLE VIEW CHEST CLINICAL HISTORY: Status post left upper lobe lung resection. Lung mass. FINDINGS: An AP, portable, upright chest radiograph is compared to study dated 03/29/2008. Correlation is made with chest CT dated 04/16/2017. The cardiomediastinal silhouette is unremarkable. There is mild atherosclerotic calcification of the thoracic aorta. There is volume loss in the left lung with postoperative change consistent with left upper lobe resection. Pleural fluid is seen at the left lung base with bibasilar opacities. A chest tube is present at the left apex. There is a trace left apical pneumothorax. The skeletal structures are osteopenic. The bony thorax is grossly intact. IMPRESSION: 1. There are postoperative changes from left upper lobe pulmonary resection. 2. There is pleural fluid at the left lung base, an expected postoperative finding. 3. Bibasilar opacities likely represent atelectasis. Clinical correlation will be required. 4. A chest tube is seen at the left apex. There is a trace left apical pneumothorax. Electronically signed by: Marino Silva M.D. 09/01/2017 5:31 PM Dictated Date/Time: 09/01/2017 5:28 PM
--- NOTE | 2017-09-01 17:52 | Anesthesiology Progress Note ---
Anesthesia Post Op Note Date & Time September 01, 2017 at 17:52 Vital Signs Pain Intensity: 0 Vital Signs Past 12 Hours Date Time Temp Pulse Resp B/P (MAP) Pulse Ox O2 Delivery O2 Flow Rate FiO2 09/01/17 17:35 62 15 147/62 100 Oxymask 10 09/01/17 17:25 59 12 144/67 100 Oxymask 10 09/01/17 17:15 35.8 67 14 157/62 100 Oxymask 10 09/01/17 10:28 36.8 86 20 156/80 98 Room Air Notes Mental Status: alert / awake / arousable, participated in evaluation Pt Amnestic to Procedure: Yes Nausea / Vomiting: adequately controlled Pain: adequately controlled Airway Patency, RR, SpO2: stable & adequate BP & HR: stable & adequate Hydration State: stable & adequate Anesthetic Complications: no major complications apparent
[2017-09-01] MEDS: D5W AND 1/2NSS 1,000 ML IV SCH (19:52)
[2017-09-01] MEDS: DOCUSATE SODIUM 100 MG CAP PO SCH (20:57)
[2017-09-01] MEDS: METOCLOPRAMIDE HCL INJ 5 MG/ML 2 ML VIAL IV. SCH (20:57)
[2017-09-01] MEDS: SUCRALFATE 1 GM/10 ML UDC PO SCH (20:57)
[2017-09-01] MEDS: ACETAMINOPHEN IV 1,000 MG in EMPTY BAG 0 ML IV SCH (20:58)
--- NOTE | 2017-09-01 23:46 | OPERATIVE REPORT ---
DATE OF OPERATION: 09/01/2017 PREOPERATIVE DIAGNOSIS: Enlarging mass, left upper lobe. POSTOPERATIVE DIAGNOSIS: Adenocarcinoma, left upper lobe. PROCEDURES: 1. Robot-assisted thoracoscopic surgery with wedge resection, lingular mass. 2. Robot-assisted thoracoscopic left upper lobectomy with mediastinal lymph node biopsies. SURGEON: Panchito Johnson MD REMELT WORKER: MIREYA Tracy ( Tracy was present for the entire case. He was instrumental in first assisting and was at the patient's bedside while I was at the consult for majority of the case. He was there for the entirety of the case and closed the skin incisions at the conclusion. ANESTHESIA: General anesthesia intubation with a double-lumen tube. SPECIFICS OF PROCEDURE: Shanice Hernandez is a very nice 66-year-old female who does have a history of cigarette smoking in the past who was found to have a mass in her left upper lobe which has not been present before. She underwent a workup and felt that she would be an operative candidate. It was not really good position to biopsy. I just elected to do an excisional biopsy with a wedge. On 09/01/2017, the patient was brought to the operating room and underwent an uncomplicated robot-assisted thoracoscopic wedge resection of this lingular mass. It turns out this indeed was an adenocarcinoma. For this reason, we then performed a technically difficult left upper lobectomy. Her fissures were incomplete. She had multiple lymph nodes, they did not appear malignant, but they were adherent. We finally were able to do this without too much difficulty and she was awakened without difficulty in the operating room. DESCRIPTION OF PROCEDURE: The patient was brought to the operating room, laid in supine position. General anesthesia induced and endotracheal intubation was performed with a double-lumen tube. The patient was then turned in the right lateral decubitus position, her left chest prepped and draped in usual sterile fashion. After proper positioning have been done and she had been prepped and draped, appropriate antibiotics given and after an appropriate timeout had been called, an incision was made just over the ninth rib and a Veress needle was used to insufflate CO2. This went without difficulty. We switched this over to a 12 mm port and placed our camera and it could be seen that there were some adhesions in the apex, but really other than the fact that she had incomplete fissures, there were no intrapleural abnormalities noted. A 5 mm port was placed posteriorly in about the eighth interspace and then two 8 mm ports were placed essentially in the same interspace, 1 anteriorly and 1 between the camera port and the 5 mm port. I then placed an assistance port anteriorly just above the diaphragm which is a 15 mm port. Unfortunately, her chest was very small. We had difficulty with the assistance port from the start. After docking the robot, we insufflated the CO2. We then entered the pleural cavity, it could be seen that there were adhesions to the upper lobe. Using a [place] bipolar, we took these down without difficulty. She had incomplete fissures. Very difficult to say where the upper lobe and lower lobe started posteriorly. At any rate, the mass was noted and did not appear to involve the pleura anteriorly. We did a generous wedge of the lingula and handed off the field. While waiting for this to come back from frozen section, the lung was retracted anteriorly, I took down the posterior pleura and biopsied level 8, level 9 lymph nodes as well as 10 and 11. I came all the way up to under the arch. Frozen section came back as adenocarcinoma, we continued. There were some issues with this patient as her chest was so small that it was difficult for the assistance port anteriorly to get the proper angles. After freeing this up anteriorly, we then went posteriorly and it could be seen that the fissures were incomplete. The lung was retracted posteriorly and I freed up the pleura. I biopsied the level 10 node and level 5 node. I really did not see a periaortic node. We biopsied multiple 11 and 12 level nodes. I freed up the superior pulmonary vein; however, we could not get a proper angle from the anterior emergency medicine physician assistant's port. For this reason, we placed a 12 mm port posteriorly just above the diaphragm and this facilitated our stapling tremendously. We stapled the end of the superior pulmonary vein and then evaluated this and we completed our pleural dissection superiorly. I then dissected out the mid portion of the fissure and got down to the arteries, but it was quite adherent. This was meticulous. We then retracted posteriorly again and I freed up all along and took lymph nodes out from around the bronchus, but this was markedly adherent also. We then retracted the lung anteriorly and I freed up the artery all the way around superiorly. I then fired a stapler and got 3 branches from the apical anterior branch. This facilitated our dissection nicely. There was another branch of the upper lobe which was taken with an Endo-JOSH stapler. I then went back and I was able to dissect out the posterior fissure and by going anterior to the artery, which was located in the mid fissure, I finally was able to go posteriorly through this and we fired an Endo-JOSH stapler and completed the fissure. This facilitated our dissection very nicely also. After this, I then meticulously took down the anterior fissure starting in the midpoint moving out until I was able to get through to the bronchus and then we were able to fire a stapler anterior to the artery. We identified the lingual artery. After firing this, this freed up our dissection quite nicely. We were able to use the posterior systems port and fired the Endo-JOSH stapler across the bronchus. We then saw there was 1 more artery to the upper lobe which was taken. Then interestingly enough upon inflating the lung, it could be seen that the posterior portion of the upper lobe was continued to be ventilated. Upon further dissection, it could be seen that there was a branch to the posterior segment of the upper lobe from the left lower lobe bronchus further down. We fired the Endo-JOSH stapler across this and freed up the lung. We delivered this off the field in an Endobag. The margins were negative for carcinoma. We had no significant bleeding with a small air leak. We irrigated out the chest. Blood loss was not significant. We then placed a 24-Belgian chest tube through the anterior most port and directed to the apex. It was held in place and sutured in place with heavy silk suture. We had to extend the anterior emergency medicine physician assistant's port to get the specimen out through the Endobag. This was closed with 0 Vicryl in a running continuous fashion for the muscle fascial layers. A 4-0 Monocryl was used to close all of the skin incisions in a running subcuticular fashion. Antimicrobial dressings were placed. It should be noted that immediately upon entering the chest before docking the robot, we did an Exparel block not only through all the incisions with a 21-gauge needle, but also used a long needle to do an intercostal block from the 2nd to the 11th rib. This went very nicely. We lost very little blood during this case. There was a minimal air leak at the conclusion. I attest to the content of the Intraoperative Record and any orders documented therein. Any exceptions are noted below. MTDD
[2017-09-02] VITALS (13 sets, daily range): BP systolic 93–170; BP diastolic 51–80; PULSE 0–86; TEMP 36.5–37.3; O2SAT 93–100
[2017-09-02] MEDS: MoRPHine SULFATE 4 MG/ML 1 ML CARP\\VIAL IV PRN ×2 (00:57→22:47)
[2017-09-02] MEDS: D5W AND 1/2NSS 1,000 ML IV SCH (04:32)
[2017-09-02] MEDS: METOCLOPRAMIDE HCL INJ 5 MG/ML 2 ML VIAL IV. SCH ×2 (06:17→13:36)
[2017-09-02] MEDS: ACETAMINOPHEN IV 1,000 MG in EMPTY BAG 0 ML IV SCH (06:24)
[2017-09-02 07:01] LABS: BASO % 0.1 %; BASO ABS # 0.01 K/uL (0-0.2); EOS % 0.1 %; EOS ABS # 0.01 K/uL (0-0.5); HEMATOCRIT 30.4 % (37-47); HEMOGLOBIN 10.5 g/dL (12.0-16.0); IG# 0.02 K/uL (0.00-0.02); LYMPH % 13.1 %; MEAN CELL VOLUME 92.4 fL (80-100); MEAN CORPUSCULAR HEMOGLOBIN 31.9 pg (25-34); MEAN CORPUSCULAR HGB CONC 34.5 g/dl (32-36); MONO % 4.8 %; MONO ABS # 0.59 K/uL (0.11-0.59); NEUT % 81.7 %; NEUT ABS # 10.01 K/uL (1.4-6.5); PLATELET COUNT 192 K/uL (130-400); RED CELL DISTRIBUTION WIDTH CV 12.7 % (11.5-14.5); RED CELL DISTRIBUTION WIDTH SD 43.3 fL (36.4-46.3); WHITE BLOOD COUNT 12.24 K/uL (4.8-10.8)
[2017-09-02 07:16] LABS: INR 1.1 (0.9-1.1)
--- NOTE | 2017-09-02 07:23 | DIAGNOSTIC IMAGING REPORT ---
CHEST ONE VIEW PORTABLE HISTORY: 66 years-old Female LACEY follow-up study in a patient with left upper lobe mass COMPARISON: Chest radiograph 09/01/2017 TECHNIQUE: Portable AP view of the chest FINDINGS: Postoperative changes from left upper lobe resection redemonstrated. Small left apical pneumothorax is seen with pleural separation of 1.5 cm. Left-sided chest tube is noted with distal tip adjacent to the left lung apex. Mild subcutaneous emphysema of the inferior lateral left chest wall. Trace left pleural effusion with subsegmental bibasilar opacities. Mild apical scarring is noted on the right. No overt pulmonary edema. Cardiac silhouette is within normal limits. Degenerative changes of the shoulders and spine. IMPRESSION: 1. Postoperative changes of left upper lobe resection with stable positioning of left-sided chest tube. 2. Small left apical pneumothorax, pleural separation 1.5 cm. 3. Trace left pleural effusion with bibasilar opacities suggesting atelectasis. The above report was generated using voice recognition software. It may contain grammatical, syntax or spelling errors. Electronically signed by: Sen Jung M.D. 09/02/2017 7:22 AM Dictated Date/Time: 09/02/2017 7:20 AM
[2017-09-02 07:32] LABS: CREATININE 1.13 mg/dl (0.60-1.20); POTASSIUM 3.2 mmol/L (3.5-5.1)
[2017-09-02] MEDS ORDERED: POTASSIUM CHLORIDE PWD 20 MEQ PACK PO ONE ×2 (08:00→12:00)
--- NOTE | 2017-09-02 08:09 | SURGERY PROGRESS NOTE ---
DATE: 09/02/2017 Ms. Hernandez is 1 day status post a robot-assisted thoracoscopic left upper lobectomy with mediastinal lymph node dissection. She looks very good. She is on room air. She has been ambulating in the hallway since last night. She is tolerating a regular diet. She has a small intermittent air leak. She has drained very little from her chest tube fluid ayala. Her x-ray looks great. She sounds good except for a few rare rhonchi in the left lung. Her x-ray shows no evidence of effusion or pneumothorax or infiltrate. All in all, her pain control is quite good. I have been quite pleased with her. Hopefully, we will be able to get her chest tube out in the next 48 hours or so.
[2017-09-02] MEDS: METOPROLOL SUCC 25MG EXT REL TAB PO SCH (08:51)
[2017-09-02] MEDS: CHOLECALCIFEROL 1000 INTER.UNIT TAB PO SCH ×2 (08:52→11:44)
[2017-09-02] MEDS: SUCRALFATE 1 GM/10 ML UDC PO SCH ×4 (08:52→20:27)
[2017-09-02] MEDS: DOCUSATE SODIUM 100 MG CAP PO SCH ×3 (08:52→20:27)
[2017-09-02] MEDS: TRIAMTERENE/HCTZ 37.5/25MG TAB PO SCH ×2 (08:53→11:44)
[2017-09-02] MEDS: FLUTICASONE PROPIONATE NA SPR 16 GM BTL NAE SCH (08:53)
[2017-09-02] MEDS: ENOXAPARIN 40 MG/0.4 ML SYR SQ SCH (08:54)
[2017-09-02] MEDS: ACETAMINOPHEN 325 MG TAB PO SCH ×3 (11:46→23:55)
[2017-09-02] MEDS: OXYCODONE HCL IR 5 MG TAB (IMMEDIATE RELEASE) PO PRN (17:11)
[2017-09-03] MEDS: MoRPHine SULFATE 4 MG/ML 1 ML CARP\\VIAL IV PRN (05:10)
[2017-09-03] MEDS: ACETAMINOPHEN 325 MG TAB PO SCH ×4 (05:11→23:45)
[2017-09-03 07:10] VITALS: BP 170/85; PULSE 94; TEMP 37; O2SAT 96
--- NOTE | 2017-09-03 07:11 | DIAGNOSTIC IMAGING REPORT ---
CHEST ONE VIEW PORTABLE CLINICAL HISTORY: Left upper lobectomy. COMPARISON STUDY: Chest radiograph September 02, 2017. FINDINGS: A left apical chest tube remains in place. A small left pneumothorax has slightly increased in size. Superior pleural separation measures 1.8 cm. There is no right pneumothorax. Mild left basilar opacity favors atelectasis. There are postoperative findings within the left hemithorax with expected volume loss. There is no evidence for pulmonary edema. Cardiomediastinal silhouette is stable. IMPRESSION: Mild increase in size of a small left apical pneumothorax with left chest tube in place. Electronically signed by: Toni Will M.D. 09/03/2017 7:09 AM Dictated Date/Time: 09/03/2017 7:07 AM
[2017-09-03 07:22] VITALS: BP 152/91
[2017-09-03] MEDS: DOCUSATE SODIUM 100 MG CAP PO SCH ×2 (08:58→20:37)
[2017-09-03] MEDS: SUCRALFATE 1 GM/10 ML UDC PO SCH ×4 (08:58→20:37)
[2017-09-03] MEDS: METOPROLOL SUCC 25MG EXT REL TAB PO SCH (08:59)
[2017-09-03] MEDS: FLUTICASONE PROPIONATE NA SPR 16 GM BTL NAE SCH (08:59)
[2017-09-03] MEDS: TRIAMTERENE/HCTZ 37.5/25MG TAB PO SCH (08:59)
[2017-09-03] MEDS: CHOLECALCIFEROL 1000 INTER.UNIT TAB PO SCH (09:00)
[2017-09-03] MEDS: ENOXAPARIN 40 MG/0.4 ML SYR SQ SCH (09:00)
[2017-09-03 15:21] VITALS: BP 148/77; PULSE 86; TEMP 37.1; O2SAT 96
[2017-09-03] MEDS: OXYCODONE HCL IR 5 MG TAB (IMMEDIATE RELEASE) PO PRN (15:54)
--- NOTE | 2017-09-03 16:38 | SURGERY PROGRESS NOTE ---
DATE: 09/03/2017 Ms. Hernandez was seen today on 09/03/2017. She looks great, but she still has a small air leak. She is not draining very much fluid. At this point, we of course cannot pull her chest tube out. I reviewed her pathology today. I was very happy to see that she is a stage 1. We are going to have her evaluated by oncology for completeness sake; however, it does not appear that she will require any chemotherapy or radiation. I am quite happy about that. I think she looks very good too. She is ambulating in the hallway. [facility]
[2017-09-03 22:48] VITALS: BP 131/79; PULSE 86; TEMP 37.2; O2SAT 96
[2017-09-04] MEDS: OXYCODONE HCL IR 5 MG TAB (IMMEDIATE RELEASE) PO PRN ×3 (04:12→22:50)
[2017-09-04] MEDS: ACETAMINOPHEN 325 MG TAB PO SCH ×4 (06:03→23:23)
--- NOTE | 2017-09-04 07:14 | DIAGNOSTIC IMAGING REPORT ---
CHEST ONE VIEW PORTABLE CLINICAL HISTORY: 66 years-old Female presenting with LACEY. TECHNIQUE: Portable upright AP view of the chest was obtained. COMPARISON: 09/03/2017. FINDINGS: Large bore left pleural drain remains positioned at the left apex. Atherosclerosis of aortic arch. Cardiac silhouette normal in size. Persistent elevation of the left hemidiaphragm with suspected left pleural effusion. Left apical pneumothorax again noted though not as well visualized on the current exam. This is stable to minimally increased from prior. Osseous structures normal. Upper abdomen normal. IMPRESSION: 1. Large bore left pleural drain remains in place with a stable to slightly increased left apical pneumothorax. Correlate clinically to exclude air leak. 2. Persistent left basilar atelectasis and suspected pleural effusion. Electronically signed by: Viet Holloway M.D. 09/04/2017 7:12 AM Dictated Date/Time: 09/04/2017 7:10 AM
[2017-09-04] MEDS: SUCRALFATE 1 GM/10 ML UDC PO SCH ×4 (08:13→21:01)
[2017-09-04] MEDS: FLUTICASONE PROPIONATE NA SPR 16 GM BTL NAE SCH (08:14)
[2017-09-04 08:16] VITALS: BP 119/76; PULSE 95; TEMP 36.9; O2SAT 99
[2017-09-04] MEDS: METOPROLOL SUCC 25MG EXT REL TAB PO SCH (08:17)
[2017-09-04] MEDS: TRIAMTERENE/HCTZ 37.5/25MG TAB PO SCH (08:17)
[2017-09-04] MEDS: CHOLECALCIFEROL 1000 INTER.UNIT TAB PO SCH (08:17)
[2017-09-04] MEDS: DOCUSATE SODIUM 100 MG CAP PO SCH ×2 (08:17→21:01)
[2017-09-04] MEDS: ENOXAPARIN 40 MG/0.4 ML SYR SQ SCH (08:24)
--- NOTE | 2017-09-04 09:51 | SURGERY PROGRESS NOTE ---
DATE: 09/04/2017 Ms. Hernandez was seen today on 09/04/2017. She looks very good. The only problem is that she still has an air leak. It is rather small and even though she has a tiny pneumothorax, I do not think I would take her back to the operating room at this point. We will wait this out. We will continue with intermittent suction. The patient's pathology shows a stage I carcinoma, which we are all very pleased with. Otherwise, I think she looks quite good.
[2017-09-04 12:00] VITALS: BP 108/60; PULSE 85; TEMP 37.1; O2SAT 97
[2017-09-04 15:14] VITALS: BP 144/79; PULSE 85; TEMP 36.9; O2SAT 99
[2017-09-04 22:47] VITALS: BP 152/89; PULSE 85; TEMP 36.7; O2SAT 99
[2017-09-05] MEDS: ACETAMINOPHEN 325 MG TAB PO SCH ×4 (05:49→23:35)
[2017-09-05 07:02] VITALS: BP 123/72; PULSE 74; TEMP 36.8; O2SAT 93
[2017-09-05] MEDS: SUCRALFATE 1 GM/10 ML UDC PO SCH ×4 (08:04→20:21)
[2017-09-05] MEDS: FLUTICASONE PROPIONATE NA SPR 16 GM BTL NAE SCH (08:04)
[2017-09-05] MEDS: METOPROLOL SUCC 25MG EXT REL TAB PO SCH (08:05)
[2017-09-05] MEDS: DOCUSATE SODIUM 100 MG CAP PO SCH ×2 (08:06→20:21)
[2017-09-05] MEDS: CHOLECALCIFEROL 1000 INTER.UNIT TAB PO SCH (08:06)
[2017-09-05] MEDS: ENOXAPARIN 40 MG/0.4 ML SYR SQ SCH (08:06)
[2017-09-05] MEDS: TRIAMTERENE/HCTZ 37.5/25MG TAB PO SCH (08:06)
--- NOTE | 2017-09-05 09:45 | SURGERY PROGRESS NOTE ---
DATE: 09/05/2017 Shanice Hernandez was seen today on 09/05/2017. She is now postop day #5 status post a robot-assisted thoracoscopic left upper lobectomy with mediastinal lymph node dissection for stage I carcinoma of the lung. She did very well except she has had a persistent air leak, although today it is essentially resolved. I would like to give her at least one in 24-48 hours with no air leak prior to pulling this tube. She sounds very good on exam and she really has very little in way of pain. We will continue to ambulate her and we will get her up and moving as we had been doing. I have been quite pleased with her progress.
[2017-09-05 15:31] VITALS: BP 147/81; PULSE 75; TEMP 37.2; O2SAT 94
[2017-09-05] MEDS: OXYCODONE HCL IR 5 MG TAB (IMMEDIATE RELEASE) PO PRN ×2 (17:08→23:35)
[2017-09-05 22:54] VITALS: BP 133/76; PULSE 81; TEMP 37.2; O2SAT 95
[2017-09-06] MEDS: ACETAMINOPHEN 325 MG TAB PO SCH ×4 (06:12→23:44)
[2017-09-06 07:23] VITALS: BP 116/75; PULSE 81; TEMP 37; O2SAT 98
--- NOTE | 2017-09-06 08:07 | Surgery Progress Note ---
Surgery Progress Note Date of Service September 06, 2017. Subjective Post OP Day: 5 + feeling well, + chest pain (Mild discomfort from tube, but denies any pain), + ambulating, + pain controlled, + diet (Tolerating AHA heart healthy diet), No complaints, No SOB, No nausea, No vomiting Objective Vital Signs: Date Time Temp Pulse Resp B/P (MAP) Pulse Ox O2 Delivery O2 Flow Rate FiO2 09/06/17 07:23 37.0 81 18 116/75 (89) 98 Room Air 09/05/17 23:45 Room Air 09/05/17 22:54 37.2 81 15 133/76 (95) 95 Room Air 09/05/17 15:45 Room Air 09/05/17 15:31 37.2 75 16 147/81 (103) 94 Room Air General Appearance: WD/WN, no apparent distress Head: normocephalic, atraumatic Respiratory/Chest: chest non-tender, no respiratory distress, no accessory muscle use Incision(s): clean, dry, intact, no erythema, no drainage Assessment & Plan POD #5 s/p robot-assisted thoracoscopic left upper lobectomy with mediastinal lymph node dissection for state I carcinoma of the lung, persistent air leak. Covering for Dr. Johnson. Patient seen and examined with Dr. Moy, labs and imaging reviewed. Doing well, Some mild discomfort from tube, Tolerating AHA diet, no N/V. Denies SOB, chest pain. Ambulating well. Connection on tube taped to ensure no leak in apparatus. Continue tube today and continue to ambulate. Will continue to monitor.
[2017-09-06 08:10] VITALS: O2SAT 98
[2017-09-06] MEDS: SUCRALFATE 1 GM/10 ML UDC PO SCH ×4 (09:51→20:44)
[2017-09-06] MEDS: CHOLECALCIFEROL 1000 INTER.UNIT TAB PO SCH (09:52)
[2017-09-06] MEDS: TRIAMTERENE/HCTZ 37.5/25MG TAB PO SCH (09:52)
[2017-09-06] MEDS: METOPROLOL SUCC 25MG EXT REL TAB PO SCH (09:52)
[2017-09-06] MEDS: FLUTICASONE PROPIONATE NA SPR 16 GM BTL NAE SCH (09:52)
[2017-09-06] MEDS: DOCUSATE SODIUM 100 MG CAP PO SCH ×2 (09:53→20:44)
[2017-09-06] MEDS: ENOXAPARIN 40 MG/0.4 ML SYR SQ SCH (09:53)
[2017-09-06 14:56] VITALS: BP 121/69; PULSE 81; TEMP 37.1; O2SAT 97
[2017-09-06] MEDS: OXYCODONE HCL IR 5 MG TAB (IMMEDIATE RELEASE) PO PRN ×2 (16:43→23:44)
[2017-09-06 23:00] VITALS: BP 125/63; PULSE 72; TEMP 37.1; O2SAT 98
[2017-09-07] VITALS (8 sets, daily range): BP systolic 112–155; BP diastolic 66–80; PULSE 67–94; TEMP 36.3–37.2; O2SAT 94–100
[2017-09-07] MEDS: ACETAMINOPHEN 325 MG TAB PO SCH ×4 (05:48→23:39)
[2017-09-07] MEDS: SUCRALFATE 1 GM/10 ML UDC PO SCH ×4 (07:52→20:29)
[2017-09-07] MEDS: OXYCODONE HCL IR 5 MG TAB (IMMEDIATE RELEASE) PO PRN ×2 (07:58→22:11)
--- NOTE | 2017-09-07 08:08 | DIAGNOSTIC IMAGING REPORT ---
CHEST ONE VIEW PORTABLE CLINICAL HISTORY: 66 years-old Female presenting with follow up pneumo. TECHNIQUE: Portable upright AP view of the chest was obtained. COMPARISON: 09/04/2017. FINDINGS: Large bore left pleural drain remains positioned at the left apex. Atherosclerosis of aortic arch. Cardiac silhouette normal in size. Persistent elevation of the left hemidiaphragm. Suture margins noted over the left hilum from left upper lobectomy. The left apical pneumothorax is not as well visualized in part due to portable technique. Trace residual is suggested. Right lung and pleural space clear. Osseous structures normal. Cholecystectomy clips noted. IMPRESSION: 1. Trace residual apical left pneumothorax may be present. Evaluation is limited by portable technique. Electronically signed by: Viet Holloway M.D. 09/07/2017 8:06 AM Dictated Date/Time: 09/07/2017 8:04 AM
--- NOTE | 2017-09-07 09:03 | SURGERY PROGRESS NOTE ---
DATE: 09/07/2017 Ms. Hernandez seen today on postop day #6 status post her robot-assisted thoracoscopic left upper lobectomy for an early stage lung cancer. She looks fine. She moved her bowels. She is ambulating in the hallway. She is on room air. She is draining very little from her chest tube. Unfortunately, she continues to have an air leak, although it is quite small. She is not quite ready to have this tube pulled out. The patient [place] and I am not enamored to the idea of putting a Heimlich valve on and sending her an hour away. I thought her x-ray looked quite good and I see no evidence of pneumothorax or pleural effusion. I am hopeful that this air leak will resolve in the next day or so. In the meantime, we will continue to ambulate her. She looks quite stable clinically otherwise.
[2017-09-07] MEDS: ENOXAPARIN 40 MG/0.4 ML SYR SQ SCH (10:15)
[2017-09-07] MEDS: TRIAMTERENE/HCTZ 37.5/25MG TAB PO SCH (10:16)
[2017-09-07] MEDS: DOCUSATE SODIUM 100 MG CAP PO SCH ×2 (10:16→20:29)
[2017-09-07] MEDS: CHOLECALCIFEROL 1000 INTER.UNIT TAB PO SCH (10:16)
[2017-09-07] MEDS: METOPROLOL SUCC 25MG EXT REL TAB PO SCH (10:17)
[2017-09-07] MEDS: FLUTICASONE PROPIONATE NA SPR 16 GM BTL NAE SCH (10:17)
[2017-09-08] MEDS: ACETAMINOPHEN 325 MG TAB PO SCH ×4 (05:48→23:20)
[2017-09-08] MEDS ORDERED: CLC100 PO (06:08)
--- NOTE | 2017-09-08 06:10 | Discharge Instructions ---
Discharge Instructions Date of Service September 08, 2017. Admission Reason for Admission: Lung Mass Discharge Discharge Diagnosis / Problem: Lung Cancer Discharge Goals Goal(s): Improve disease control, Learn about illness Activity Recommendations Activity Limitations: as noted below Lifting Limitations: none 1. Do not fly or drive until cleared to do so by Dr. Johnson. . Instructions / Follow-Up Instructions / Follow-Up 1. You may remove dressings in 3 days and shower thereafter. No tub baths. 2. Office appointment with Dr. Johnson in 1 week. Office will call with date and time of appointment. Go to hospital 1 hour before appointment to have a chest x-ray taken. 3. Empty drainage container as needed and records amounts. 4. If you have any problems, call [facility] at and ask to have Dr. Johnson paged. Current Hospital Diet Patient's current hospital diet: AHA Diet (Heart Healthy) Discharge Diet Recommended Diet: Regular Diet Procedures Procedures Performed: Left Robot assisted Thoracoscopic wedge resection Left Upper Lobe, Left upper lobectomy, mediastinal lymph node biopsy Pending Studies Studies pending at discharge: no Medical Emergencies . Who to Call and When: Medical Emergencies: If at any time you feel your situation is an emergency, please call 911 immediately. . Non-Emergent Contact Non-Emergency issues call your: Surgeon Call Non-Emergent contact if: you have a fever, your pain is not controlled, wound has increased drainage . "Provider Documentation" section prepared by Mehrdad Fontenot. .
[2017-09-08 07:20] VITALS: BP 104/65; PULSE 91; TEMP 36.8; O2SAT 94
[2017-09-08] MEDS: SUCRALFATE 1 GM/10 ML UDC PO SCH ×4 (07:25→20:38)
--- NOTE | 2017-09-08 07:56 | DIAGNOSTIC IMAGING REPORT ---
CHEST 2 VIEWS ROUTINE CLINICAL HISTORY: pneumothorax COMPARISON STUDY: 09/07/2017 FINDINGS: Left-sided chest tube unchanged in position. Small left apical pneumothorax unchanged with a maximum pleural separation of 4 mm. Right lung remains clear. IMPRESSION: Unchanging small 4 mm left apical pneumothorax. The above report was generated using voice recognition software. It may contain grammatical, syntax or spelling errors. Electronically signed by: Bossman Leon M.D. 09/08/2017 7:55 AM Dictated Date/Time: 09/08/2017 7:54 AM
[2017-09-08] MEDS: METOPROLOL SUCC 25MG EXT REL TAB PO SCH (09:04)
[2017-09-08] MEDS: CHOLECALCIFEROL 1000 INTER.UNIT TAB PO SCH (09:04)
[2017-09-08] MEDS: FLUTICASONE PROPIONATE NA SPR 16 GM BTL NAE SCH (09:04)
[2017-09-08] MEDS: TRIAMTERENE/HCTZ 37.5/25MG TAB PO SCH (09:04)
[2017-09-08] MEDS: DOCUSATE SODIUM 100 MG CAP PO SCH ×2 (09:05→20:38)
[2017-09-08] MEDS: ENOXAPARIN 40 MG/0.4 ML SYR SQ SCH (09:05)
[2017-09-08 15:07] VITALS: BP 103/62; PULSE 81; TEMP 36.9; O2SAT 98
[2017-09-08 15:20] VITALS: O2SAT 98
[2017-09-08] MEDS: OXYCODONE HCL IR 5 MG TAB (IMMEDIATE RELEASE) PO PRN ×2 (15:28→23:21)
--- NOTE | 2017-09-08 16:17 | SURGERY PROGRESS NOTE ---
DATE: 09/08/2017 Ms. Hernandez was seen today on 09/08/2017. She is now 1 week out from her lobectomy for an early stage lung cancer. Unfortunately, she still continues to have a leak. I thought her x-ray looked very good this morning. She really has no fluid in her chest. She has been draining a scant amount of fluid. I attached a Heimlich valve to this and we will get her up moving. I am a bit concerned about sending her home with a Heimlich valve as she lives an hour away, however, we will see how she looks in the next few days. This air leak is tiny. I am loathe to return to the operating room to fix at this point.
[2017-09-08 23:00] VITALS: BP 153/56; PULSE 76; TEMP 37; O2SAT 97
[2017-09-09] MEDS: ACETAMINOPHEN 325 MG TAB PO SCH (05:06)
[2017-09-09] MEDS: OXYCODONE HCL IR 5 MG TAB (IMMEDIATE RELEASE) PO PRN (07:39)
[2017-09-09] MEDS: SUCRALFATE 1 GM/10 ML UDC PO SCH (07:39)
[2017-09-09 08:12] VITALS: BP 116/76; PULSE 92; TEMP 36.6; O2SAT 96
[2017-09-09 08:15] VITALS: O2SAT 96
[2017-09-09] MEDS ORDERED: ULT/50 PO (08:59)
[2017-09-09] MEDS: FLUTICASONE PROPIONATE NA SPR 16 GM BTL NAE SCH (09:42)
[2017-09-09] MEDS: TRIAMTERENE/HCTZ 37.5/25MG TAB PO SCH (09:43)
[2017-09-09] MEDS: METOPROLOL SUCC 25MG EXT REL TAB PO SCH (09:43)
[2017-09-09] MEDS: DOCUSATE SODIUM 100 MG CAP PO SCH (09:43)
[2017-09-09] MEDS: CHOLECALCIFEROL 1000 INTER.UNIT TAB PO SCH (09:44)
[2017-09-09] MEDS: ENOXAPARIN 40 MG/0.4 ML SYR SQ SCH (09:45)
[2017-09-09 11:01] VITALS: BP 116/76; PULSE 92; TEMP 36.6; O2SAT 96
--- NOTE | 2017-09-09 15:08 | DISCHARGE SUMMARY ---
DISCHARGE DIAGNOSES: 1. Adenocarcinoma, left upper lobe. 2. Persistent air leak. 3. History of cigarette smoking. HOSPITAL COURSE: Shanice Hernandez is a very nice 66-year-old former smoker who was found to have a mass in her left upper lobe. I brought the patient to the operating room on 09/01/2017 and performed a robot-assisted thoracoscopic wedge resection with frozen section. It turns out this is an adenocarcinoma. She had an uncomplicated left upper lobe robot-assisted thoracoscopic left upper lobectomy with mediastinal lymph node dissection. I was quite pleased with her. She had a tiny air leak in the operating room. Unfortunately, it persisted. It seemed a bit larger couple days after surgery but still was intermittent. Her x-ray also looks quite good. At this point, I elected to proceed with observation alone, put her on a Heimlich valve which she did very well with that and then she was discharged home on postop day #8. Her x-ray looked quite good. Clinically, the patient did superbly. She is moving her bowels, tolerating regular diet, ambulating in the hallway on room air. Her final stage was a T1 N0 M0 or a stage I adenocarcinoma of the lung. She will not require any adjuvant chemotherapy or radiation. This was an invasive adenocarcinoma but it was well-differentiated, only 1.5 cm, with negative margins and 15 lymph nodes were negative for carcinoma. The patient will be discharged home on postop day 8. I will see her back in the office next week with an x-ray. Course instructions have been given. All of her incisions are clean. Her only dressings around her chest tube. She had a very tiny air leak this morning.
== END 2017-09-09 11:36 | disposition home health service (06) | DRG 164 ==
LOC: C.ACU 09:47 → C.MSW 16:32 → ENRESERV 18:02
PROVIDERS: ADMIT Surgery; ATTEND Surgery
PROC: 8E0W4CZ Robotic Assisted Procedure of Trunk Region, Percutaneous Endoscopic Approach (ICD-10-PCS; principal; 2017-09-01 12:00)
PROC: 0BTG4ZZ Resection of Left Upper Lung Lobe, Percutaneous Endoscopic Approach (ICD-10-PCS; principal; 2017-09-01 12:00)
PROC: 0BBG4ZX Excision of Left Upper Lung Lobe, Percutaneous Endoscopic Approach, Diagnostic (ICD-10-PCS; principal; 2017-09-01 12:00)
PROC: 07B74ZX Excision of Thorax Lymphatic, Percutaneous Endoscopic Approach, Diagnostic (ICD-10-PCS; principal; 2017-09-01 12:00)
DX: C34.12 Malignant neoplasm of upper lobe, left bronchus or lung (principal); J95.812 Postprocedural air leak; J44.9 Chronic obstructive pulmonary disease, unspecified; I12.9 Hypertensive chronic kidney disease with stage 1 through stage 4 chronic kidney disease, or unspecified chronic kidney disease; N18.3 Chronic kidney disease, stage 3 (moderate); K21.9 Gastro-esophageal reflux disease without esophagitis; F32.9 Major depressive disorder, single episode, unspecified; H81.01 Meniere's disease, right ear; Z87.19 Personal history of other diseases of the digestive system; Z90.49 Acquired absence of other specified parts of digestive tract; Z87.891 Personal history of nicotine dependence; Z79.51 Long term (current) use of inhaled steroids; Z79.899 Other long term (current) drug therapy; Z88.6 Allergy status to analgesic agent; Z88.7 Allergy status to serum and vaccine; Z88.8 Allergy status to other drugs, medicaments and biological substances; Z91.048 Other nonmedicinal substance allergy status; Z90.710 Acquired absence of both cervix and uterus; Z90.722 Acquired absence of ovaries, bilateral; Z90.79 Acquired absence of other genital organ(s); Z98.890 Other specified postprocedural states

== ENCOUNTER 2017-09-14 18:51 | Emergency (ER) | payer OTHER ==
[~2017-09-14] VITALS: Ht 162.6 cm; Wt 58.2 kg
[~2017-09-14 18:51] MED LIST changes: +CLC100 PO; -DEXAMETHASONE SOD INJ 4 MG/ML VIAL ONE; -EpHEDrine SULFATE INJ 50 MG/ML AMP ONE; -FENTANYL CITRATE INJ 50 MCG/1 ML 2 ML VIAL ONE; -GLYCOPYRROLATE INJ 0.2 MG/ML VIAL ONE; -LACTATED RINGER'S 1000ML 1,000 ML IV SCH; -LIDOCAINE HCL 2% 2 ML VIAL (20MG/ML) ONE; -MIDAZOLAM HCL 1 MG/ML 2ML VIAL ONE; -NEOSTIGMINE METHYLSULFATE 5 MG/5 ML SYR ONE; -ONDANSETRON INJ 2 MG/ML 2 ML VIAL ONE; -PHENYLEPHRINE 100MCG/ML 5ML SYR ONE; -PROPOFOL IV EMULSION 10 MG/ML 20 ML VIAL ONE; -ROCURONIUM BROMIDE 10 MG/ML 5 ML VIAL ONE; +ULT/50 PO
[2017-09-14 18:56] VITALS: Ht 162.6 cm; Wt 58.2 kg
--- NOTE | 2017-09-14 19:13 | DIAGNOSTIC IMAGING REPORT ---
CHEST ONE VIEW PORTABLE HISTORY: 67 years-old Female ?clogged chest tube follow-up study in a patient with trace left pneumothorax COMPARISON: Chest radiograph 09/08/2017 TECHNIQUE: Portable AP view of the chest FINDINGS: Cardiac silhouette is within normal limits. Right lung is clear. Surgical suture material about the left hilum redemonstrated. Left sided chest tube is again seen with distal tip projected adjacent to the left lung apex. No definite left-sided pneumothorax identified. Left hemidiaphragm elevation with chronic blunting about the left costophrenic angle redemonstrated. Minimal linear subsegmental left basilar opacities. No overt pulmonary edema. Degenerative changes of the shoulders. Cholecystectomy clips noted. IMPRESSION: Unchanged positioning of left-sided chest tube without definite pneumothorax identified. The above report was generated using voice recognition software. It may contain grammatical, syntax or spelling errors. Electronically signed by: Sen Jung M.D. 09/14/2017 7:11 PM Dictated Date/Time: 09/14/2017 7:09 PM
[2017-09-14 19:22] LABS: BASO % 0.6 %; BASO ABS # 0.07 K/uL (0-0.2); EOS % 3.1 %; EOS ABS # 0.35 K/uL (0-0.5); HEMATOCRIT 32.9 % (37-47); HEMOGLOBIN 11.5 g/dL (12.0-16.0); IG# 0.03 K/uL (0.00-0.02); LYMPH ABS # 2.37 K/uL (1.2-3.4); MEAN CELL VOLUME 91.4 fL (80-100); MEAN CORPUSCULAR HEMOGLOBIN 31.9 pg (25-34); MEAN PLATELET VOLUME 9.4 fL (7.4-10.4); MONO % 4.9 %; MONO ABS # 0.55 K/uL (0.11-0.59); NEUT % 70.1 %; NEUT ABS # 7.93 K/uL (1.4-6.5); PLATELET COUNT 393 K/uL (130-400); RED CELL DISTRIBUTION WIDTH CV 12.8 % (11.5-14.5); RED CELL DISTRIBUTION WIDTH SD 42.7 fL (36.4-46.3)
--- NOTE | 2017-09-14 19:43 | Discharge Instructions ---
Discharge Instructions Date of Service September 14, 2017. Visit Reason for Visit: Clogged Chest Tube,Post Op 09/01 Discharge Discharge Diagnosis / Problem: Same Discharge Goals Goal(s): Increase independence (Walk!!!) Activity Recommendations Activity Limitations: resume your previous activity Anesthesia . Post Anesthesia Instructions: If you have had General Anesthesia or IV Sedation: * Do not drive today. * Resume driving when surgeon permits. * Do not make important decisions or sign legal documents today. * Call surgeon for: 1. Temperature elevations greater than 101 degrees F. 2. Uncontrollable pain. 3. Excessive bleeding. 4. Persistent nausea and vomiting. 5. Medication intolerance (nausea, vomiting or rash). * For nausea and vomiting use only clear liquids such as: tea, soda, bouillon until nausea subsides, then gradually increase diet as tolerated. * If you have any concerns or questions, call your surgeon's office. If physician is unavailable and it is an emergency, call 911 or go to the nearest emergency room. . Instructions / Follow-Up Instructions / Follow-Up My office will call you to reschedule. Remove left chest dressing and shower on 09-17-17. Walk!! Leave all dressings off after removal. Diet Recommendations Recommended Home Diet: resume previous diet Pending Studies Studies pending at discharge: no Medical Emergencies . Who to Call and When: Medical Emergencies: If at any time you feel your situation is an emergency, please call 911 immediately. . Non-Emergent Contact Non-Emergency issues call your: Surgeon (Call [phone] and page him.) . . "Provider Documentation" section prepared by Panchito Johnson. .
--- NOTE | 2017-09-14 19:51 | DIAGNOSTIC IMAGING REPORT ---
CHEST ONE VIEW PORTABLE HISTORY: 67 years-old Female chest tube removal status post removal left-sided chest tube COMPARISON: Chest radiograph of same day at 6:53 PM TECHNIQUE: Portable AP view of the chest FINDINGS: Cardiac silhouette is within normal limits. Right lung is clear. Surgical suture material about the left hilum redemonstrated. Status post removal of left-sided chest tube. No definite left-sided pneumothorax identified. Left hemidiaphragm elevation with chronic blunting about the left costophrenic angle redemonstrated. Minimal linear subsegmental left basilar opacities. No overt pulmonary edema. Degenerative changes of the shoulders. Cholecystectomy clips noted. IMPRESSION: Status post removal of the left-sided chest tube without pneumothorax identified. The above report was generated using voice recognition software. It may contain grammatical, syntax or spelling errors. Electronically signed by: Sen Jung M.D. 09/14/2017 7:50 PM Dictated Date/Time: 09/14/2017 7:48 PM
[2017-09-14 19:52] VITALS: BP 128/71; PULSE 79; TEMP 36.7; O2SAT 100
--- NOTE | 2017-09-14 20:17 | SURGICAL CONSULTATION ---
DATE OF CONSULTATION: 09/14/2017 HISTORY OF PRESENT ILLNESS: This is a 67-year-old female who presented to me with a mass in her left upper lobe. On 09/01/2017, I performed a robot-assisted thoracoscopic wedge resection and a robot-assisted thoracoscopic left upper lobectomy with mediastinal lymphadenectomy. She did quite well with this. She really did not have much of an air leak in the operating room, but she did have one the following morning. Really was not bad enough for us to take her back, but it was persistent and small. I had finally put a Heimlich valve on her. On postop day #8, I sent her home. She looked quite good otherwise. It should be reported that she has a stage I carcinoma. At any rate, the patient went home and I got a call today that her tube had filled with fluid on her Heimlich valve. She was coming to the Emergency Room because she was extremely worried about this. In the Emergency Room, she looked great. She has 100% saturation on room air. X-ray showed no pneumothorax. She had no leak in her tube. I removed her chest tube. Her post-tube removal x-ray look great. She was much relieved to have the tube out. I discharged her home and I will see her back in the office in 2 weeks with a chest x-ray. Quite pleased with how well she looked. I was supposed to see her in the office in 2 days and we have simply moved this appointment up. She and her were quite relieved.
== END 2017-09-14 19:54 | disposition home or self-care (01) ==
LOC: C.EDB 18:52 → C.EDC 19:54
DX: Z04.8 Encounter for examination and observation for other specified reasons (principal)

== ENCOUNTER 2020-12-31 10:50 | Observation (INO) ==
[2020-12-31 11:19] LABS: Basophils # (auto) 0.03 K/uL (0-0.2); Basophils % (auto) 0.5 %; Eosinophils # (auto) 0.09 K/uL (0-0.5); Eosinophils % (auto) 1.4 %; Hematocrit (blood only) 38.6 % (37-47); Hemoglobin 13.6 g/dL (12.0-16.0); Immature Granulocytes # (auto) 0.01 K/uL (0.00-0.02); Immature Granulocytes % (auto) 0.2 %; Lymphocytes # (auto) 1.56 K/uL (1.2-3.4); Lymphocytes % (auto) 23.4 %; Mean Corpuscular Hemoglobin 32.5 pg (25-34); Mean Corpuscular Hgb Conc 35.2 g/dL (32-36); Mean Corpuscular Volume 92.1 fL (80-100); Mean Platelet Volume 10.2 fL (7.4-10.4); Monocytes # (auto) 0.45 K/uL (0.11-0.59); Monocytes % (auto) 6.8 %; Neutrophils # (auto) 4.52 K/uL (1.4-6.5); Neutrophils % (auto) 67.7 %; Platelet Count 202 K/uL (130-400); RDW Coefficient of Variation 12.4 % (11.5-14.5); RDW Standard Deviation 41.9 fL (36.4-46.3); Red Blood Count 4.19 M/uL (4.2-5.4); White Blood Count 6.66 K/uL (4.8-10.8)
[2020-12-31 11:58] LABS: Appearance Urine Clear (Clear); Bilirubin Urine Negative (Negative); Blood Urine Negative (Negative); Color Urine Yellow; Glucose Urine UA Negative (Negative); Ketones Urine Negative (Negative); Leukocyte Esterase Urine Negative (Negative); Nitrite Urine Negative (Negative); Protein Urine Negative (Negative); Specific Gravity Urine 1.014 (1.000-1.030); Urobilinogen Urine Negative (Negative); pH Urine 6.5 (4.5-7.5)
--- NOTE | 2020-12-31 12:07 | CT Scan Report ---
CT OF THE HEAD WITHOUT CONTRAST CLINICAL HISTORY: Weakness. Confusion. COMPARISON STUDY: MRI of the brain August 02, 2017. CT DOSE: 537.48 mGy.cm TECHNIQUE: Helical axial images of the head were obtained without IV contrast. Automated exposure con trol was utilized for the study. A dose lowering technique was utilized adhering to the principles o f ALARA. FINDINGS: No acute intracranial hemorrhage, midline shift or mass effect is present. Mild white matte r hypodensities favor small vessel disease. The ventricular system is unremarkable. The basal cistern s are patent. No extra-axial collections are present. There are no findings to suggest acute dural si nus thrombosis or acute territorial infarct. No significant calvarial abnormalities are present. Visu alized portions of the sinuses and mastoid air cells are clear. IMPRESSION: No acute intracranial findings. ACT 112: Negative or not required by law. Electronically signed by: Toni Will M.D. 12/31/2020 12:05 PM
[2020-12-31 12:11] LABS: Base Excess VBG 4.7 mEq/L; HCO3 VBG 30 mmol/L; Oxygen Saturation VBG < 60.0 %; PCO2 VBG 45 mmHg (38-50); PO2 VBG 20 mmHg; pH VBG 7.43 (7.36-7.41)
--- NOTE | 2020-12-31 12:16 | XRay Report ---
XR chest 1V portable CLINICAL HISTORY: Weakness. Confusion. COMPARISON STUDY: Chest CT October 16, 2020. FINDINGS: Lung volumes are normal. Lungs are clear. There is no pneumothorax or pleural effusion. Car diac size is normal. Mediastinal contours are normal. There is no evidence for pulmonary edema. Left lung volume loss is unchanged following left upper lobectomy. IMPRESSION: No acute cardiopulmonary findings. No change in appearance of the chest. ACT 112: Negative or not required by law. Electronically signed by: Toni Will M.D. 12/31/2020 12:14 PM
[2020-12-31 12:28] LABS: Magnesium 1.5 mg/dl (1.8-2.4); Troponin I < 0.015 ng/ml (0-0.045)
[2020-12-31 12:41] LABS: Albumin Level 3.8 gm/dl (3.4-5.0); BUN Creatinine Ratio 19.4 (10-20); Calcium 9.4 mg/dl (8.5-10.1); Creatinine Clr Calc Pharmacy 36.9 ml/min; Est GFR (African American) 47.5 ml/min; Potassium 3.3 mmol/L (3.5-5.1)
[2020-12-31 12:45] LABS: Bilirubin,Total 0.6 mg/dl (0.2-1); Globulin 3.7 gm/dl (2.5-4.0); Total Protein 7.5 gm/dl (6.4-8.2)
[2020-12-31] MEDS: MAGNESIUM SULFATE / D5W 1 GM/100 ML BAG IV SCH ×2 (13:10→14:16)
--- NOTE | 2020-12-31 16:05 | History & Physical Report ---
Date of Service December 31, 2020 Assessment & Plan (1) Confusion: Plan: It is unclear what caused the patient's previous symptoms, they seem to have resolved at the time my evaluation Confusion with rigors is certainly concerning for infectious or neurological process, work-up is been negative We will place in monitored observation for now Check MRI of the brain Check Lyme titer, blood cultures PT/OT evaluation replete magnesium, although i suspect that is not underlying issue We will ask neurology to evaluate for further recommendations, may need to consider a vasculitis versus meningitis although patient does not seem to be acutely ill at this time (2) Hypertension: Plan: Blood pressure elevated with a low pulse For now continue metoprolol and triamterene/hydrochlorothiazide as ordered, I will consider adding additional agent depending on progress (3) Hyperlipidemia: Plan: Check fasting lipids Does not appear to be on any statin or cholesterol-lowering medication (4) Chronic obstructive pulmonary disease: Plan: Previous history of lung cancer, since treated successfully No tobacco use since 2007 We will continue to monitor (5) GERD without esophagitis: Plan: Per medical history, not on PPI Continue to monitor History of Present Illness Chief Complaint: Confusion Primary Care Provider: Enrrique Sanz DO This is a 68-year-old female with past medical history of hypertension, hyperlipidemia, COPD, and previous lung cancer who presents complaining confusion and dysarthria. Patient is a poor historian as she has pressured speech and jumps topics. Son is at bedside is able to fill in some details. Patient states that over the past week or 2 she has been having episodes of confusion, this seems to be very intermittent. Yesterday evening she had rigors with shaking that was quite severe. The son works very locally and calls the patient every day at around 9 AM. He said that today he was having difficulty understanding her because she seemed to be confused. In addition, she had trouble speaking. When questioned further, the problem was projecting her voice more so than aphasia. He went to get the patient to bring to the ER. He noted that she was generally weak without any focal symptoms. Did not notice any facial droop or slurring of speech. At the time of my evaluation, the patient seems to be at her baseline per the son. Her speech is fluid and normal for her without any breathlessness. I also did not appreciate any tremor or rigor. Work-up in the emergency room was essentially negative outside of a magnesium of 1.5 which is currently being repleted IV. Allergies Allergy/AdvReac Type Severity Reaction Status Date / Time tetanus toxoid, adsorbed Allergy Severe ANAPHYLAXIS Verified 12/31/20 14:17 prednisone Allergy Intermediate rash, CRUZ, Verified 12/31/20 14:17 nausea tiotropium Allergy Unknown UNKNOWN Verified 12/31/20 14:17 varenicline Allergy Unknown UNKNOWN Verified 12/31/20 14:17 ibuprofen AdvReac Mild GI SYMPTOMS Verified 12/31/20 14:17 ranitidine AdvReac Mild MIGRAINES Verified 12/31/20 14:17 alendronate sodium AdvReac Tremor, Verified 12/31/20 14:17 sweating Tartrazine Allergy Unknown UNKNOWN Uncoded 12/31/20 14:17 Potassium [place] AdvReac Mild HEADACHE Uncoded 12/31/20 14:17 Home Medications Medication Instructions Recorded Confirmed Type cholecalciferol (vitamin D3) 25 1,000 units PO QAM tab 12/02/18 12/31/20 History mcg (1,000 unit) tablet hydroxyzine HCl 25 mg tablet 25 mg PO HS PRN #30 tab 02/10/19 12/31/20 Rx linaclotide 72 mcg capsule 72 mcg PO DAILY PRN 05/11/19 12/31/20 History (Linzess) Ventolin HFA 90 mcg/actuation 1 - 2 puffs INHALATION Q4H PRN #18 05/25/19 12/31/20 Rx aerosol inhaler (albuterol sulfate) gm NS meclizine 12.5 mg tablet 12.5 mg PO BID PRN #60 tab 12/05/19 12/31/20 Rx amitriptyline 25 mg tablet 25 mg PO HS #90 tab 07/30/20 12/31/20 Rx docusate sodium 100 mg tablet 100 mg PO BID PRN tab 10/17/20 12/31/20 History tramadol 50 mg tablet 50 mg PO Q6H PRN tab 10/17/20 12/31/20 History ammonium lactate 12 % lotion 1 applic TOPICAL BID PRN #1 gm 11/06/20 12/31/20 History metoprolol succinate 25 mg 25 mg PO QAM 12/31/20 12/31/20 History tablet,extended release 24 hr triamterene 37.5 1 cap PO QAM 12/31/20 12/31/20 History mg-hydrochlorothiazide 25 mg capsule Past Med/Surg History Medical History (Updated 12/31/20 @ 16:00 by Dennis Hale DO) Adenocarcinoma of lung Arrhythmia Constipation Hypokalemia Mitral valve prolapse Surgical History (Updated 11/06/20 @ 11:14 by Dina Estes) History of bowel resection History of breast surgery History of cholecystectomy History of colon surgery History of hysterectomy History of lung surgery (09/01/17) Wedge resection of lingular mass, L upper lobectomy w/ mediastinal lymph node biopsies for adenocarcinoma of LACEY History of tubal ligation S/P cataract extraction 10/10/2020 right, 10/24/[address] Mcconnell Family History Aunt Breast cancer Mother Myocardial infarction Depression Diabetes Hypertension Father Myocardial infarction Hypertension Lung disease Denies family history of Ovarian cancer Prostate cancer Colorectal cancer Social History (Updated 11/06/20 @ 11:17 by Dina Estes) Smoking Status: Former smoker Tobacco Type: Cigarettes Age Started Using Tobacco: 16; Age Quit Using Tobacco: 63; packs per day: 0.050; Second Hand Exposure: No; Hx Alcohol Use: No Hx Substance Use: No Preferred Language: Andorran Communication Ability: Effective Visual Impairment: No Limitations Hearing Ability: Normal marital status: Current Living Situation: Alone current occupational status: retired Feels Safe at Home: Yes Childhood Exposure to Second-Hand Smoke: Yes caffeine: Yes Dental Care, Regularly: Yes Physical Activity Frequency: Daily Physical Activity Frequency Comment: walk and active lifestyle Seatbelt Use: always Sunscreen Use: Yes Do you think of yourself as: straight/heterosexual Review of Systems Constitutional: + chills and + weakness; no fever, no weight loss and no weight gain Eyes: as per Subjective / HPI Respiratory: no cough, no chest congestion, no dyspnea and no dyspnea on exertion Cardiovascular: no chest pain, no orthopnea, no palpitations, no lightheadedness and no edema Gastrointestinal: no abdominal pain, no nausea, no vomiting, no constipation and no diarrhea/loose stools Genitourinary: no dysuria, no difficulty urinating, no urinary frequency, no urinary hesitancy, no urinary urgency and no flank pain Musculoskeletal: no back pain, no neck pain, no joint pain, no stiffness and no myalgia Integumentary: no rash Neurologic: no gait abnormality, no unsteadiness, no falls and no generalized weakness Physical Exam Constitutional: cooperative; no acute distress Neck: trachea midline, no thyromegaly Respiratory: normal respiratory effort Auscultation: lungs clear to auscultation bilaterally; no crackles, no rales, no rhonchi and no wheezes Cardiovascular: Rate/Rhythm: regular rate and regular rhythm Heart Sounds: normal S1 and normal S2 Gastrointestinal (Abdomen): Inspection/Auscultation: abdomen normal to inspection Percussion/Palpation: abdomen soft; abdomen nontender, no guarding, abdomen not rigid and no hepatosplenomegaly Skin: no rashes, warm and dry Results & Data Results & Data ([facility]) Vital Signs (Past 12 Hours) Vital Signs Temp Pulse Resp BP Pulse Ox 12/31/20 15:30 57 L 22 166/81 H 99 12/31/20 15:00 55 L 18 173/88 H 100 12/31/20 14:30 54 L 19 167/90 H 100 12/31/20 14:00 54 L 19 145/87 H 98 12/31/20 13:30 55 L 21 158/80 H 100 12/31/20 13:15 55 L 17 186/88 H 100 12/31/20 10:54 61 18 202/97 H 98 12/31/20 10:50 37.0 C 61 18 202/97 H 100 Laboratory Results Laboratory Results WBC 6.66 K/uL (4.8-10.8) 12/31/20 Unknown RBC 4.19 M/uL (4.2-5.4) L 12/31/20 Unknown Hgb 13.6 g/dL (12.0-16.0) 12/31/20 Unknown Hct 38.6 % (37-47) 12/31/20 Unknown MCV 92.1 fL (80-100) 12/31/20 Unknown MCH 32.5 pg (25-34) 12/31/20 Unknown MCHC 35.2 g/dL (32-36) 12/31/20 Unknown RDW Std Deviation 41.9 fL (36.4-46.3) 12/31/20 Unknown RDW Coeff of Annia 12.4 % (11.5-14.5) 12/31/20 Unknown Plt Count 202 K/uL (130-400) 12/31/20 Unknown MPV 10.2 fL (7.4-10.4) 12/31/20 Unknown Immature Gran % (Auto) 0.2 % 12/31/20 Unknown Neut % (Auto) 67.7 % 12/31/20 Unknown Lymph % (Auto) 23.4 % 12/31/20 Unknown [place] % (Auto) 6.8 % 12/31/20 Unknown Eos % (Auto) 1.4 % 12/31/20 Unknown Baso % (Auto) 0.5 % 12/31/20 Unknown Neut # (Auto) 4.52 K/uL (1.4-6.5) 12/31/20 Unknown Lymph # (Auto) 1.56 K/uL (1.2-3.4) 12/31/20 Unknown [place] # (Auto) 0.45 K/uL (0.11-0.59) 12/31/20 Unknown Eos # (Auto) 0.09 K/uL (0-0.5) 12/31/20 Unknown Baso # (Auto) 0.03 K/uL (0-0.2) 12/31/20 Unknown Immature Gran # (Auto) 0.01 K/uL (0.00-0.02) 12/31/20 Unknown VBG pH 7.43 (7.36-7.41) H 12/31/20 11:59 VBG pCO2 45 mmHg (38-50) 12/31/20 11:59 VBG pO2 20 mmHg 12/31/20 11:59 VBG HCO3 30 mmol/L 12/31/20 11:59 VBG O2 Saturation < 60.0 % 12/31/20 11:59 VBG Base Excess 4.7 mEq/L 12/31/20 11:59 Barometric Pressure 728.9 mm/Hg 12/31/20 11:59 Sodium 140 mmol/L (136-145) 12/31/20 Unknown Potassium 3.3 mmol/L (3.5-5.1) L 12/31/20 Unknown Chloride 107 mmol/L (98-107) 12/31/20 Unknown Carbon Dioxide 27 mmol/L (21-32) 12/31/20 Unknown Anion Gap 6.0 (3-11) 12/31/20 Unknown BUN 25 mg/dl (7-18) H 12/31/20 Unknown Creatinine 1.30 mg/dl (0.6-1.2) H 12/31/20 Unknown Est Cr Clr Drug Dosing 36.9 ml/min 12/31/20 Unknown Est GFR ( Amer) 47.5 ml/min 12/31/20 Unknown Est GFR (Non-Af Amer) 41.0 ml/min 12/31/20 Unknown BUN/Creatinine Ratio 19.4 (10-20) 12/31/20 Unknown Glucose 98 mg/dl (70-99) 12/31/20 Unknown POC Glucose 98 mg/dl (70-99) 12/31/20 11:31 Calcium 9.4 mg/dl (8.5-10.1) 12/31/20 Unknown Magnesium 1.5 mg/dl (1.8-2.4) L 12/31/20 11:59 Total Bilirubin 0.6 mg/dl (0.2-1) 12/31/20 Unknown AST 19 U/L (15-37) 12/31/20 Unknown ALT 23 U/L (12-78) 12/31/20 Unknown Alkaline Phosphatase 100 U/L (45-117) 12/31/20 Unknown Ammonia < 10.0 umol/L (11-32) L 12/31/20 11:59 Troponin I < 0.015 ng/ml (0-0.045) 12/31/20 11:59 Total Protein 7.5 gm/dl (6.4-8.2) 12/31/20 Unknown Albumin 3.8 gm/dl (3.4-5.0) 12/31/20 Unknown Globulin 3.7 gm/dl (2.5-4.0) 12/31/20 Unknown Albumin/Globulin Ratio 1.0 (0.9-2) 12/31/20 Unknown Lipase 83 U/L (73-393) 12/31/20 11:59 Urine Color Yellow 12/31/20 Unknown Urine Appearance Clear (Clear) 12/31/20 Unknown Urine pH 6.5 (4.5-7.5) 12/31/20 Unknown Ur Specific [place] 1.014 (1.000-1.030) 12/31/20 Unknown Urine Protein Negative (Negative) 12/31/20 Unknown Urine Glucose (UA) Negative (Negative) 12/31/20 Unknown Urine Ketones Negative (Negative) 12/31/20 Unknown Urine Blood Negative (Negative) 12/31/20 Unknown Urine Nitrite Negative (Negative) 12/31/20 Unknown Urine Bilirubin Negative (Negative) 12/31/20 Unknown Urine Urobilinogen Negative (Negative) 12/31/20 Unknown Ur Leukocyte Esterase Negative (Negative) 12/31/20 Unknown COVID-19 Eval Order Covid19 at [facility] 12/31/20 11:31 SARS-CoV-2 (PCR) NEGATIVE (Negative) 12/31/20 11:31 Impressions Chest X-Ray 12/31/20 11:29 XR chest 1V portable CLINICAL HISTORY: Weakness. Confusion. COMPARISON STUDY: Chest CT October 16, 2020. FINDINGS: Lung volumes are normal. Lungs are clear. There is no pneumothorax or pleural effusion. Cardiac size is normal. Mediastinal contours are normal. There is no evidence for pulmonary edema. Left lung volume loss is unchanged following left upper lobectomy. IMPRESSION: No acute cardiopulmonary findings. No change in appearance of the chest. ACT 112: Negative or not required by law. Electronically signed by: Toni Will M.D. 12/31/2020 12:[address] 12/31/20 11:29 CT OF THE HEAD WITHOUT CONTRAST CLINICAL HISTORY: Weakness. Confusion. COMPARISON STUDY: MRI of the brain August 02, 2017. CT DOSE: 537.48 mGy.cm TECHNIQUE: Helical axial images of the head were obtained without IV contrast. Automated exposure control was utilized for the study. A dose lowering technique was utilized adhering to the principles of ALARA. FINDINGS: No acute intracranial hemorrhage, midline shift or mass effect is present. Mild white matter hypodensities favor small vessel disease. The ventricular system is unremarkable. The basal cisterns are patent. No extra- axial collections are present. There are no findings to suggest acute dural sinus thrombosis or acute territorial infarct. No significant calvarial abnormalities are present. Visualized portions of the sinuses and mastoid air cells are clear. IMPRESSION: No acute intracranial findings. ACT 112: Negative or not required by law. Electronically signed by: Toni Will M.D. 12/31/2020 12:05 PM PG Care Time/CCT Total # of Minutes Spent Total Time Spent with Patient: Total time spent is greater than 50% in coordination of care (as documented) at patient's floor/unit and/or counseling patient: Coding Level of Care Code INT OBSERVATION CARE 68M LVL 3 Diagnoses Hypertension I10 Hyperlipidemia E78.5 Chronic obstructive pulmonary disease J44.9 GERD without esophagitis K21.9 Confusion R41.0
--- NOTE | 2020-12-31 17:02 | Emergency Department Note ---
History of Present Illness General Chief complaint: Illness Stated complaint: DIZZY, SHAKY Time Seen by Provider: 12/31/20 11:11 History of Present Illness Provider complaint: Dizziness shaking altered mental status Onset (ago): day(s) 1 Location: head Radiation: non-radiation Pain Consistency: + now resolved Associated symptoms: + confusion and + weakness; no chest pain, no cough, no fever/chills, no headaches, no nausea/vomiting, no seizure or no shortness of breath 70-year-old female presents emergency department for weakness and altered mental status. Patient states she woke up this morning felt very weak and confused. She denies any falls. She denies any headaches. She states she was shaking. She states she did eat this morning. Patient reports no chest pain or difficulty breathing. Patient is not vaccinated as COVID-19. No vomiting. No hematuria dysuria melena or hematochezia. Home Medications Medication Instructions Recorded Confirmed Type cholecalciferol (vitamin D3) 25 1,000 units PO QAM tab 12/02/18 12/31/20 History mcg (1,000 unit) tablet hydroxyzine HCl 25 mg tablet 25 mg PO HS PRN #30 tab 02/10/19 12/31/20 Rx linaclotide 72 mcg capsule 72 mcg PO DAILY PRN 05/11/19 12/31/20 History (Linzess) Ventolin HFA 90 mcg/actuation 1 - 2 puffs INHALATION Q4H PRN #18 05/25/19 12/31/20 Rx aerosol inhaler (albuterol sulfate) gm NS meclizine 12.5 mg tablet 12.5 mg PO BID PRN #60 tab 12/05/19 12/31/20 Rx amitriptyline 25 mg tablet 25 mg PO HS #90 tab 07/30/20 12/31/20 Rx docusate sodium 100 mg tablet 100 mg PO BID PRN tab 10/17/20 12/31/20 History tramadol 50 mg tablet 50 mg PO Q6H PRN tab 10/17/20 12/31/20 History ammonium lactate 12 % lotion 1 applic TOPICAL BID PRN #1 gm 11/06/20 12/31/20 History metoprolol succinate 25 mg 25 mg PO QAM 12/31/20 12/31/20 History tablet,extended release 24 hr triamterene 37.5 1 cap PO QAM 12/31/20 12/31/20 History mg-hydrochlorothiazide 25 mg capsule Allergies Allergy/AdvReac Type Severity Reaction Status Date / Time tetanus toxoid, adsorbed Allergy Severe ANAPHYLAXIS Verified 12/31/20 14:17 prednisone Allergy Intermediate rash, CRUZ, Verified 12/31/20 14:17 nausea tiotropium Allergy Unknown UNKNOWN Verified 12/31/20 14:17 varenicline Allergy Unknown UNKNOWN Verified 12/31/20 14:17 ibuprofen AdvReac Mild GI SYMPTOMS Verified 12/31/20 14:17 ranitidine AdvReac Mild MIGRAINES Verified 12/31/20 14:17 alendronate sodium AdvReac Tremor, Verified 12/31/20 14:17 sweating Tartrazine Allergy Unknown UNKNOWN Uncoded 12/31/20 14:17 Potassium [place] AdvReac Mild HEADACHE Uncoded 12/31/20 14:17 Past Med/Surg History Medical History Adenocarcinoma of lung Arrhythmia Constipation Hypokalemia Mitral valve prolapse Surgical History History of bowel resection History of breast surgery History of cholecystectomy History of colon surgery History of hysterectomy History of lung surgery (09/01/17) Wedge resection of lingular mass, L upper lobectomy w/ mediastinal lymph node biopsies for adenocarcinoma of LACEY History of tubal ligation S/P cataract extraction 10/10/2020 right, 10/24/[address] Mcconnell Family History Aunt Breast cancer Mother Myocardial infarction Depression Diabetes Hypertension Father Myocardial infarction Hypertension Lung disease Denies family history of Ovarian cancer Prostate cancer Colorectal cancer Social History Smoking Status: Former smoker Tobacco Type: Cigarettes Age Started Using Tobacco: 16; Age Quit Using Tobacco: 63; packs per day: 0.050; Second Hand Exposure: No; Hx Alcohol Use: No Hx Substance Use: No Preferred Language: Nepali Communication Ability: Effective Visual Impairment: No Limitations Hearing Ability: Normal marital status: Current Living Situation: Alone current occupational status: retired Feels Safe at Home: Yes Childhood Exposure to Second-Hand Smoke: Yes caffeine: Yes Dental Care, Regularly: Yes Physical Activity Frequency: Daily Physical Activity Frequency Comment: walk and active lifestyle Seatbelt Use: always Sunscreen Use: Yes Do you think of yourself as: straight/heterosexual Review of Systems A total of 10 systems reviewed and were otherwise negative Physical Exam Vital Signs Vital Signs - 24 hr 12/31/20 10:50 12/31/20 10:54 12/31/20 13:15 Temperature 37.0 C Temperature Source Oral Pulse Rate 61 61 55 L Pulse Rate from SpO2 Sensor 62 56 L Respiratory Rate 18 18 17 Blood Pressure 202/97 H 202/97 H 186/88 H Blood Pressure Mean 132 132 120 Pulse Oximetry 100 98 100 Oxygen Delivery Method Room Air Sepsis Recent Fever Within 48 Hours No Sepsis New/Unexplained Change in Mental Status No Sepsis Action Taken by Nursing No Action Required 12/31/20 13:30 12/31/20 14:00 12/31/20 14:30 Temperature Temperature Source Pulse Rate 55 L 54 L 54 L Pulse Rate from SpO2 Sensor 56 L 54 L 53 L Respiratory Rate 21 19 19 Blood Pressure 158/80 H 145/87 H 167/90 H Blood Pressure Mean 106 106 115 Pulse Oximetry 100 98 100 Oxygen Delivery Method Sepsis Recent Fever Within 48 Hours Sepsis New/Unexplained Change in Mental Status Sepsis Action Taken by Nursing 12/31/20 15:00 12/31/20 15:30 Temperature Temperature Source Pulse Rate 55 L 57 L Pulse Rate from SpO2 Sensor 55 L 57 L Respiratory Rate 18 22 Blood Pressure 173/88 H 166/81 H Blood Pressure Mean 116 109 Pulse Oximetry 100 99 Oxygen Delivery Method Room Air Room Air Sepsis Recent Fever Within 48 Hours Sepsis New/Unexplained Change in Mental Status Sepsis Action Taken by Nursing Physical Exam GENERAL: She is oriented to person, place, and time. She appears well-developed and well-nourished. She does not appear distressed. HENT: Exam performed. -Head: Normocephalic and atraumatic. -Right Ear: External ear normal. No mastoid tenderness. -Left Ear: External ear normal. No mastoid tenderness. -Mouth/Throat: The oropharynx is clear and moist. No trismus in the jaw. No dental abscesses or uvula swelling. No oropharyngeal exudate or tonsillar abscesses. EYES: Conjunctivae and EOM are normal. Pupils are equal, round, and reactive to light. Right eye exhibits no discharge. Left eye exhibits no discharge. No scleral icterus. NECK: Normal range of motion. Neck supple. No JVD present. No spinous process tenderness present. No carotid bruit present. No rigidity. No tracheal deviation and normal range of motion present. No Brudzinski's sign and no Kernig's sign noted. CV: Normal rate, regular rhythm, normal heart sounds and intact distal pulses. There is no peripheral edema. Palpable radial pulses bue. PULM/CHEST: Effort normal and breath sounds normal. No respiratory distress. No stridor. She has no wheezes. She has no rales. -Chest Wall: She exhibits no tenderness. ABD: The abdomen is soft. Bowel sounds are normal. She has no distension. No mass is present. There is no tenderness. There is no rebound, no guarding, no Wahl's sign and no tenderness at McBurney's point. Rovsig negative MUSC/SKEL: Normal range of motion. There is no peripheral edema, tenderness or deformity. LYMPH: No cervical adenopathy. NEURO: She is alert and oriented to person, place, and time. She has normal strength. No cranial nerve deficit or sensory deficit. Coordination and gait normal. GCS eye subscore is 4. GCS verbal subscore is 5. GCS motor subscore is 6. Cerebellar tests wnl. SKIN: Skin is warm and dry. She is not diaphoretic. PSYCH: She has a normal mood and affect. Behavior is normal. Judgment and thought content normal. Course Course 1111: The patient was evaluated in room B10. A complete history and physical exam was performed Cardiac monitoring: An order was placed for continuous cardiac monitoring. The monitor shows a rate of 60 with sinus rhythm 1345: Vital signs stable. Imaging within normal limits. Labs show a low magn esium level. Magnesium replacement started in the emergency department. Patient be admitted to the [facility] team for further evaluation. Dr. Young notified. Administered Medications Discontinued Medications Magnesium Sulfate/Dextrose (Magnesium Sulfate / D5w) 1 gm in 100 mls @ 100 mls/hr IV Q1H [facility] Stop: 12/31/20 14:30 Last Infusion: 12/31/20 15:16 Dose: 0 mls/hr Documented by: [id number] Admin: 12/31/20 14:16 Dose: 100 mls/hr Documented by: [id number] Infusion: 12/31/20 14:15 Dose: 0 mls/hr Documented by: [id number] Admin: 12/31/20 13:10 Dose: 100 mls/hr Documented by: [id number] Medical Decision Making Laboratory Data Result diagrams: 12/31/20 Unknown 12/31/20 Unknown Lab Results 12/31/20 12/31/20 12/31/20 Range/Units 11:31 11:31 11:31 WBC (4.8-10.8) K/uL RBC (4.2-5.4) M/uL Hgb (12.0-16.0) g/dL Hct (37-47) % MCV (80-100) fL MCH (25-34) pg MCHC (32-36) g/dL RDW Std Deviation (36.4-46.3) fL RDW Coeff of Annia (11.5-14.5) % Plt Count (130-400) K/uL MPV (7.4-10.4) fL Immature Gran % (Auto) % Neut % (Auto) % Lymph % (Auto) % [place] % (Auto) % Eos % (Auto) % Baso % (Auto) % Neut # (Auto) (1.4-6.5) K/uL Lymph # (Auto) (1.2-3.4) K/uL [place] # (Auto) (0.11-0.59) K/uL Eos # (Auto) (0-0.5) K/uL Baso # (Auto) (0-0.2) K/uL Immature Gran # (Auto) (0.00-0.02) K/uL VBG pH (7.36-7.41) VBG pCO2 (38-50) mmHg VBG pO2 mmHg VBG HCO3 mmol/L VBG O2 Saturation % VBG Base Excess mEq/L Barometric Pressure mm/Hg Sodium (136-145) mmol/L Potassium (3.5-5.1) mmol/L Chloride (98-107) mmol/L Carbon Dioxide (21-32) mmol/L Anion Gap (3-11) BUN (7-18) mg/dl Creatinine (0.6-1.2) mg/dl Est Cr Clr Drug Dosing ml/min Est GFR ( Amer) ml/min Est GFR (Non-Af Amer) ml/min BUN/Creatinine Ratio (10-20) Glucose (70-99) mg/dl POC Glucose 98 (70-99) mg/dl Calcium (8.5-10.1) mg/dl Magnesium (1.8-2.4) mg/dl Total Bilirubin (0.2-1) mg/dl AST (15-37) U/L ALT (12-78) U/L Alkaline Phosphatase (45-117) U/L Ammonia (11-32) umol/L Troponin I (0-0.045) ng/ml Total Protein (6.4-8.2) gm/dl Albumin (3.4-5.0) gm/dl Globulin (2.5-4.0) gm/dl Albumin/Globulin Ratio (0.9-2) Lipase (73-393) U/L Urine Color Urine Appearance (Clear) Urine pH (4.5-7.5) Ur Specific [place] (1.000-1.030) Urine Protein (Negative) Urine Glucose (UA) (Negative) Urine Ketones (Negative) Urine Blood (Negative) Urine Nitrite (Negative) Urine Bilirubin (Negative) Urine Urobilinogen (Negative) Ur Leukocyte Esterase (Negative) COVID-19 Eval Order Covid19 at [facility] SARS-CoV-2 (PCR) NEGATIVE (Negative) 12/31/20 12/31/20 12/31/20 Range/Units 11:59 11:59 11:59 WBC (4.8-10.8) K/uL RBC (4.2-5.4) M/uL Hgb (12.0-16.0) g/dL Hct (37-47) % MCV (80-100) fL MCH (25-34) pg MCHC (32-36) g/dL RDW Std Deviation (36.4-46.3) fL RDW Coeff of Annia (11.5-14.5) % Plt Count (130-400) K/uL MPV (7.4-10.4) fL Immature Gran % (Auto) % Neut % (Auto) % Lymph % (Auto) % [place] % (Auto) % Eos % (Auto) % Baso % (Auto) % Neut # (Auto) (1.4-6.5) K/uL Lymph # (Auto) (1.2-3.4) K/uL [place] # (Auto) (0.11-0.59) K/uL Eos # (Auto) (0-0.5) K/uL Baso # (Auto) (0-0.2) K/uL Immature Gran # (Auto) (0.00-0.02) K/uL VBG pH 7.43 H (7.36-7.41) VBG pCO2 45 (38-50) mmHg VBG pO2 20 mmHg VBG HCO3 30 mmol/L VBG O2 Saturation < 60.0 % VBG Base Excess 4.7 mEq/L Barometric Pressure 728.9 mm/Hg Sodium (136-145) mmol/L Potassium (3.5-5.1) mmol/L Chloride (98-107) mmol/L Carbon Dioxide (21-32) mmol/L Anion Gap (3-11) BUN (7-18) mg/dl Creatinine (0.6-1.2) mg/dl Est Cr Clr Drug Dosing ml/min Est GFR ( Amer) ml/min Est GFR (Non-Af Amer) ml/min BUN/Creatinine Ratio (10-20) Glucose (70-99) mg/dl POC Glucose (70-99) mg/dl Calcium (8.5-10.1) mg/dl Magnesium 1.5 L (1.8-2.4) mg/dl Total Bilirubin (0.2-1) mg/dl AST (15-37) U/L ALT (12-78) U/L Alkaline Phosphatase (45-117) U/L Ammonia (11-32) umol/L Troponin I < 0.015 (0-0.045) ng/ml Total Protein (6.4-8.2) gm/dl Albumin (3.4-5.0) gm/dl Globulin (2.5-4.0) gm/dl Albumin/Globulin Ratio (0.9-2) Lipase 83 (73-393) U/L Urine Color Urine Appearance (Clear) Urine pH (4.5-7.5) Ur Specific [place] (1.000-1.030) Urine Protein (Negative) Urine Glucose (UA) (Negative) Urine Ketones (Negative) Urine Blood (Negative) Urine Nitrite (Negative) Urine Bilirubin (Negative) Urine Urobilinogen (Negative) Ur Leukocyte Esterase (Negative) COVID-19 Eval Order SARS-CoV-2 (PCR) (Negative) 12/31/20 12/31/20 12/31/20 Range/Units 11:59 Unknown Unknown WBC 6.66 (4.8-10.8) K/uL RBC 4.19 L (4.2-5.4) M/uL Hgb 13.6 (12.0-16.0) g/dL Hct 38.6 (37-47) % MCV 92.1 (80-100) fL MCH 32.5 (25-34) pg MCHC 35.2 (32-36) g/dL RDW Std Deviation 41.9 (36.4-46.3) fL RDW Coeff of Annia 12.4 (11.5-14.5) % Plt Count 202 (130-400) K/uL MPV 10.2 (7.4-10.4) fL Immature Gran % (Auto) 0.2 % Neut % (Auto) 67.7 % Lymph % (Auto) 23.4 % [place] % (Auto) 6.8 % Eos % (Auto) 1.4 % Baso % (Auto) 0.5 % Neut # (Auto) 4.52 (1.4-6.5) K/uL Lymph # (Auto) 1.56 (1.2-3.4) K/uL [place] # (Auto) 0.45 (0.11-0.59) K/uL Eos # (Auto) 0.09 (0-0.5) K/uL Baso # (Auto) 0.03 (0-0.2) K/uL Immature Gran # (Auto) 0.01 (0.00-0.02) K/uL VBG pH (7.36-7.41) VBG pCO2 (38-50) mmHg VBG pO2 mmHg VBG HCO3 mmol/L VBG O2 Saturation % VBG Base Excess mEq/L Barometric Pressure mm/Hg Sodium 140 (136-145) mmol/L Potassium 3.3 L (3.5-5.1) mmol/L Chloride 107 (98-107) mmol/L Carbon Dioxide 27 (21-32) mmol/L Anion Gap 6.0 (3-11) BUN 25 H (7-18) mg/dl Creatinine 1.30 H (0.6-1.2) mg/dl Est Cr Clr Drug Dosing 36.9 ml/min Est GFR ( Amer) 47.5 ml/min Est GFR (Non-Af Amer) 41.0 ml/min BUN/Creatinine Ratio 19.4 (10-20) Glucose 98 (70-99) mg/dl POC Glucose (70-99) mg/dl Calcium 9.4 (8.5-10.1) mg/dl Magnesium (1.8-2.4) mg/dl Total Bilirubin 0.6 (0.2-1) mg/dl AST 19 (15-37) U/L ALT 23 (12-78) U/L Alkaline Phosphatase 100 (45-117) U/L Ammonia < 10.0 L (11-32) umol/L Troponin I (0-0.045) ng/ml Total Protein 7.5 (6.4-8.2) gm/dl Albumin 3.8 (3.4-5.0) gm/dl Globulin 3.7 (2.5-4.0) gm/dl Albumin/Globulin Ratio 1.0 (0.9-2) Lipase (73-393) U/L Urine Color Urine Appearance (Clear) Urine pH (4.5-7.5) Ur Specific [place] (1.000-1.030) Urine Protein (Negative) Urine Glucose (UA) (Negative) Urine Ketones (Negative) Urine Blood (Negative) Urine Nitrite (Negative) Urine Bilirubin (Negative) Urine Urobilinogen (Negative) Ur Leukocyte Esterase (Negative) COVID-19 Eval Order SARS-CoV-2 (PCR) (Negative) 12/31/20 Range/Units Unknown WBC (4.8-10.8) K/uL RBC (4.2-5.4) M/uL Hgb (12.0-16.0) g/dL Hct (37-47) % MCV (80-100) fL MCH (25-34) pg MCHC (32-36) g/dL RDW Std Deviation (36.4-46.3) fL RDW Coeff of Annia (11.5-14.5) % Plt Count (130-400) K/uL MPV (7.4-10.4) fL Immature Gran % (Auto) % Neut % (Auto) % Lymph % (Auto) % [place] % (Auto) % Eos % (Auto) % Baso % (Auto) % Neut # (Auto) (1.4-6.5) K/uL Lymph # (Auto) (1.2-3.4) K/uL [place] # (Auto) (0.11-0.59) K/uL Eos # (Auto) (0-0.5) K/uL Baso # (Auto) (0-0.2) K/uL Immature Gran # (Auto) (0.00-0.02) K/uL VBG pH (7.36-7.41) VBG pCO2 (38-50) mmHg VBG pO2 mmHg VBG HCO3 mmol/L VBG O2 Saturation % VBG Base Excess mEq/L Barometric Pressure mm/Hg Sodium (136-145) mmol/L Potassium (3.5-5.1) mmol/L Chloride (98-107) mmol/L Carbon Dioxide (21-32) mmol/L Anion Gap (3-11) BUN (7-18) mg/dl Creatinine (0.6-1.2) mg/dl Est Cr Clr Drug Dosing ml/min Est GFR ( Amer) ml/min Est GFR (Non-Af Amer) ml/min BUN/Creatinine Ratio (10-20) Glucose (70-99) mg/dl POC Glucose (70-99) mg/dl Calcium (8.5-10.1) mg/dl Magnesium (1.8-2.4) mg/dl Total Bilirubin (0.2-1) mg/dl AST (15-37) U/L ALT (12-78) U/L Alkaline Phosphatase (45-117) U/L Ammonia (11-32) umol/L Troponin I (0-0.045) ng/ml Total Protein (6.4-8.2) gm/dl Albumin (3.4-5.0) gm/dl Globulin (2.5-4.0) gm/dl Albumin/Globulin Ratio (0.9-2) Lipase (73-393) U/L Urine Color Yellow Urine Appearance Clear (Clear) Urine pH 6.5 (4.5-7.5) Ur Specific [place] 1.014 (1.000-1.030) Urine Protein Negative (Negative) Urine Glucose (UA) Negative (Negative) Urine Ketones Negative (Negative) Urine Blood Negative (Negative) Urine Nitrite Negative (Negative) Urine Bilirubin Negative (Negative) Urine Urobilinogen Negative (Negative) Ur Leukocyte Esterase Negative (Negative) COVID-19 Eval Order SARS-CoV-2 (PCR) (Negative) Imaging Data Radiologist's Impression: Chest X-Ray 12/31/20 11:29 XR chest 1V portable CLINICAL HISTORY: Weakness. Confusion. COMPARISON STUDY: Chest CT October 16, 2020. FINDINGS: Lung volumes are normal. Lungs are clear. There is no pneumothorax or pleural effusion. Cardiac size is normal. Mediastinal contours are normal. There is no evidence for pulmonary edema. Left lung volume loss is unchanged following left upper lobectomy. IMPRESSION: No acute cardiopulmonary findings. No change in appearance of the chest. ACT 112: Negative or not required by law. Electronically signed by: Toni Will M.D. 12/31/2020 12:[address] 12/31/20 11:29 CT OF THE HEAD WITHOUT CONTRAST CLINICAL HISTORY: Weakness. Confusion. COMPARISON STUDY: MRI of the brain August 02, 2017. CT DOSE: 537.48 mGy.cm TECHNIQUE: Helical axial images of the head were obtained without IV contrast. Automated exposure control was utilized for the study. A dose lowering technique was utilized adhering to the principles of ALARA. FINDINGS: No acute intracranial hemorrhage, midline shift or mass effect is present. Mild white matter hypodensities favor small vessel disease. The ventr icular system is unremarkable. The basal cisterns are patent. No extra-axial collections are present. There are no findings to suggest acute dural sinus thrombosis or acute territorial infarct. No significant calvarial abnormalities are present. Visualized portions of the sinuses and mastoid air cells are clear. IMPRESSION: No acute intracranial findings. ACT 112: Negative or not required by law. Electronically signed by: Toni Will M.D. 12/31/2020 12:05 PM ECG Data Indication: + weakness Rate (beats per minute): 57 Rhythm: + normal sinus ECG Intervals/blocks: + Normal QRS, + Normal OR and + Normal QT-c ECG ST segments: + Normal ST segments MDM Narrative Vital signs stable. Imaging within normal limits. Labs show a low magnesium level. Magnesium replacement started in the emergency department. Patient be admitted to the [facility] team for further evaluation. Dr. Young notified. Impression & Plan Hypomagnesemia Discharge Plan Visit Data Chief Complaint: Illness Stated Complaint: DIZZY, SHAKY Discharge Problem: Hypomagnesemia Patient Disposition: Being Evaluated by Hospitalist Forms Stand Alone Forms: [facility] Prescriptions Prescriptions: No Action hydroxyzine HCl 25 mg tablet 25 mg PO HS PRN (Reason: Depression, anxiety) Qty: 30 RF: 1 albuterol sulfate [Ventolin HFA] 90 mcg/actuation HFA aerosol inhaler 1 - 2 puffs inhalation Q4H PRN (Reason: Shortness Of Breath) Qty: 18 RF: 5 amitriptyline 25 mg tablet 25 mg PO HS Qty: 90 RF: 1 meclizine 12.5 mg tablet 12.5 mg PO BID PRN (Reason: Dizziness) Qty: 60 RF: 5 tramadol 50 mg tablet 50 mg PO Q6H PRN (Reason: Pain) RF: 0 cholecalciferol (vitamin D3) 1,000 unit (25 mcg) tablet 1,000 units PO QAM RF: 0 docusate sodium 100 mg tablet 100 mg PO BID PRN (Reason: Constipation) RF: 0 ammonium lactate 12 % lotion 1 applic topical BID PRN (Reason: dry skin) Qty: 1 RF: 0 Linzess 72 mcg capsule 72 mcg PO DAILY PRN (Reason: Pain) RF: 0 triamterene-hydrochlorothiazid 37.5-25 mg capsule 1 cap PO QAM RF: 0 metoprolol succinate 25 mg tablet extended release 24 hr 25 mg PO QAM RF: 0 Referrals Referrals: Enrrique Sanz DO [Primary Care Provider] -
--- NOTE | 2020-12-31 18:10 | Magnetic Resonance Report ---
MRI OF THE BRAIN WITHOUT IV CONTRAST CLINICAL HISTORY: Change in mental status. COMPARISON STUDY: CT of the brain dated 12/31/2020. MRI of the brain dated 08/02/2017. TECHNIQUE: MRI of the brain was performed utilizing various T1 and T2-weighted sequences in the axial , sagittal, and coronal planes. IV contrast was not administered for this examination. FINDINGS: Brain parenchyma: There is age-related involutional change noting mild microangiopathic disease. Ther e is no hemorrhage or mass effect. There is no restricted diffusion to suggest acute ischemia. A fly frame tender zhao lacunar infarct is noted in the left cerebellar hemisphere. Roque-white matter differentiation is preserved. No extra-axial fluid collection is seen. The cerebellar tonsils are normal in configuratio n. Ventricles, sulci, and cisterns: Prominent secondary to involutional change. Pituitary and sella: Unremarkable. Intracranial vasculature: Normal flow voids are maintained at the skull base. Orbits: The bony orbits are grossly intact. Orbital contents are normal in appearance noting bilatera l ocular lens implants. Sinuses and mastoids: Clear. Calvarium: Unremarkable. Cervical cord: Partially visualized cervical spinal cord is normal in morphology and signal intensity . IMPRESSION: No acute intracranial abnormality. ACT 112: Negative or not required by law. Electronically signed by: Marino Silva M.D. 12/31/2020 6:09 PM
[2020-12-31] MEDS ORDERED: traMADol HCL 50 MG TABLET PO PRN (18:33)
[2020-12-31] MEDS ORDERED: ONDANSETRON INJ 2 MG/ML 2 ML VIAL IV PRN (18:33)
[2020-12-31] MEDS ORDERED: ALBUTEROL HFA 8 GM INHALER INH PRN (18:33)
[2020-12-31] MEDS ORDERED: ACETAMINOPHEN 325 MG TAB PO PRN (18:33)
[2020-12-31] MEDS ORDERED: hydrOXYzine HCl 25 MG TAB PO PRN (18:33)
[2020-12-31] MEDS ORDERED: MECLIZINE 12.5 MG TAB PO PRN (18:33)
[2020-12-31] MEDS ORDERED: DOCUSATE SODIUM 100 MG CAP PO PRN (18:53)
[2020-12-31] MEDS ORDERED: linaCLOtide 72 MCG CAPSULE PO PRN (19:03)
[2020-12-31 19:30] LABS: Lyme Ab IgG w/WB Rflx Negative (Negative); Lyme Ab IgM w/WB Rflx Negative (Negative)
[2020-12-31] MEDS ORDERED: AMITRIPTYLINE HCL 25 MG TAB PO SCH (21:00)
--- NOTE | 2021-01-01 05:51 | Electrocardiogram Report ---
Test Reason : Blood Pressure : / mmHG Vent. Rate : 057 BPM Atrial Rate : 057 BPM P-R Int : 142 ms QRS Dur : 136 ms QT Int : 448 ms P-R-T Axes : 068 035 041 degrees QTc Int : 436 ms Sinus bradycardia Right bundle branch block When compared with ECG of 11-MAY-2019 10:43, Premature ventricular complexes are no longer Present Confirmed by Suman Moy ([id number]) on 01/01/2021 5:51:12 AM Referred By: Confirmed By:Suman Moy
[2021-01-01] MEDS ORDERED: TRIAMTERENE/HCTZ 37.5/25MG CAP PO SCH (09:00)
[2021-01-01] MEDS ORDERED: CHOLECALCIFEROL 1,000 UNITS 25 MCG TAB PO SCH (09:00)
[2021-01-01] MEDS ORDERED: METOPROLOL SUCC 25MG EXT REL TAB PO SCH (09:00)
--- NOTE | 2021-01-01 10:23 | Neurology Consultation ---
Date of Consultation January 01, 2021 Assessment & Plan (1) Confusion: (2) Hypertension: (3) Hypomagnesemia: Patient had the onset symptoms December 31 consisting of bilateral tremulousness in the legs and hands as well as nausea and nonspecific "confusion". I am not certain the patient had actual cognitive defects or encephalopathy as much is some word-finding issues and trouble explaining herself. Examination and mental status by the time she got to the emergency room was unremarkable. she did develop a headache yesterday which is gone today. The patient was significantly hypertensive and had a magnesium of 1.5. all of her symptoms are resolved today hypomagnesemia can give nausea weakness and lethargy in general, tremor and muscle fasciculations. Hypertension can give confusion and headache. A vague sense of tremulousness is possible with significant hypertension as well. Given the bilaterally symmetrical symptoms I am more inclined to believe that her clinical picture is from hypertension and hypomagnesemia, as opposed to a neuro vascular event such as a TIA. Certainly, she did not have a stroke given the normal MRI Recommendations: 1. I am not sure she needs any additional neurologic testing at this time. We could consider CT angiography of the head and neck. 2. 81 mg aspirin tablet daily is reasonable). 3. I can follow as an outpatient otherwise Overall, I spent a total of 90 minutes with this case including review of records, review of MRI films, direct evaluation the patient bedside, and discussion of the case with the patient and her RN at bedside, and Dr. Castillo, including differential diagnosis and treatment options. History of Present Illness Reason for Consultation: Patient is a 70-year-old, who I was asked to see the request of Dr. Hale, for neurologic consultation regarding confusional episode December 31 Requesting Physician: Dr. Hale Attending Physician: Robert Castillo, DO History of Present Illness patient has a history of hypertension for several years. She has a history of left upper lobectomy in August of 2017 for stage IA adenocarcinoma , done by Dr. Johnson using a robot assisted thoracoscopic. Apparently lymph nodes were negative and patient did not need to receive chemotherapy or radiation. in addition, she has history of gastroesophageal reflux disease GI irritation. The patient tells me that she has had a history of trembling an intermittent nature in both legs for couple of months earlier this year. It would come and go and has been gone for 2 months also. Patient woke around 0830 on December 31 and noted burning pain in her stomach and nausea with some trembling feelings in her legs and hands. She felt that the shaking was visible in the hands and possibly visible in the legs. Both sides were symmetrical. She had no weakness, numbness, or pain otherwise. She felt tired in general. She also noted some "confusion". This consisted of some inability to express herself well or get the words out correctly. She remembers everything that happened. She arrived to the emergency room December 31 at 1050, with a temperature 37.0, pulse 61 and regular, respiratory rate 18, blood pressure 202/97, O2 saturation percent. Blood pressure remained elevated in the emergency. By the time she got to the emergency room her ability to speak was back to normal and she did not feel lightheaded or confused. The trembly feeling in the legs and nausea word proving as well. She developed a headache which worsened around the time of the MRI. She felt some headache this morning but it was resolved with Tylenol. This morning she is largely asymptomatic. CT scan of the head was unremarkable. Chem profile showed a potassium of 3.3 and magnesium 1 point. CBC was. Chest x-ray was unremarkable MRI of the brain without contrast showed acute changes. There is mild nonspecific old small vessel ischemic disease and atrophy. I reviewed these films. She has been in sinus rhythm in the 80s with some PACs and her blood pressure is 51/83 this morniing Allergies Allergy/AdvReac Type Severity Reaction Status Date / Time tetanus toxoid, adsorbed Allergy Severe ANAPHYLAXIS Verified 12/31/20 14:17 prednisone Allergy Intermediate rash, CRUZ, Verified 12/31/20 14:17 nausea tiotropium Allergy Unknown UNKNOWN Verified 12/31/20 14:17 varenicline Allergy Unknown UNKNOWN Verified 12/31/20 14:17 ibuprofen AdvReac Mild GI SYMPTOMS Verified 12/31/20 14:17 ranitidine AdvReac Mild MIGRAINES Verified 12/31/20 14:17 alendronate sodium AdvReac Tremor, Verified 12/31/20 14:17 sweating Tartrazine Allergy Unknown UNKNOWN Uncoded 12/31/20 14:17 Potassium [place] AdvReac Mild HEADACHE Uncoded 12/31/20 14:17 Home Medications Medication Instructions Recorded Confirmed Type cholecalciferol (vitamin D3) 25 1,000 units PO QAM tab 12/02/18 12/31/20 History mcg (1,000 unit) tablet hydroxyzine HCl 25 mg tablet 25 mg PO HS PRN #30 tab 02/10/19 12/31/20 Rx linaclotide 72 mcg capsule 72 mcg PO DAILY PRN 05/11/19 12/31/20 History (Linzess) Ventolin HFA 90 mcg/actuation 1 - 2 puffs INHALATION Q4H PRN #18 05/25/19 12/31/20 Rx aerosol inhaler (albuterol sulfate) gm NS meclizine 12.5 mg tablet 12.5 mg PO BID PRN #60 tab 12/05/19 12/31/20 Rx amitriptyline 25 mg tablet 25 mg PO HS #90 tab 07/30/20 12/31/20 Rx docusate sodium 100 mg tablet 100 mg PO BID PRN tab 10/17/20 12/31/20 History tramadol 50 mg tablet 50 mg PO Q6H PRN tab 10/17/20 12/31/20 History ammonium lactate 12 % lotion 1 applic TOPICAL BID PRN #1 gm 11/06/20 12/31/20 History metoprolol succinate 25 mg 25 mg PO QAM 12/31/20 12/31/20 History tablet,extended release 24 hr triamterene 37.5 1 cap PO QAM 12/31/20 12/31/20 History mg-hydrochlorothiazide 25 mg capsule Patient History Medical History Adenocarcinoma of lung Arrhythmia Constipation Hypokalemia Mitral valve prolapse Surgical History History of bowel resection History of breast surgery History of cholecystectomy History of colon surgery History of hysterectomy History of lung surgery (09/01/17) Wedge resection of lingular mass, L upper lobectomy w/ mediastinal lymph node biopsies for adenocarcinoma of LACEY History of tubal ligation S/P cataract extraction 10/10/2020 right, 10/24/[address] Mcconnell Family History Aunt Breast cancer Mother Myocardial infarction Depression Diabetes Hypertension Father Myocardial infarction Hypertension Lung disease Denies family history of Ovarian cancer Prostate cancer Colorectal cancer Social History Smoking Status: Former smoker Tobacco Type: Cigarettes Age Started Using Tobacco: 16; Age Quit Using Tobacco: 63; packs per day: 0.050; Second Hand Exposure: No; Do You Dip or Chew Tobacco: No; Hx Alcohol Use: No Hx Substance Use: No Preferred Language: Polish Communication Ability: Effective Visual Impairment: No Limitations Hearing Ability: Normal Beliefs That Will Affect Care: None marital status: Current Living Situation: Alone current occupational status: retired Feels Safe at Home: Yes Safety Concerns: Feels Safe At This Time Childhood Exposure to Second-Hand Smoke: Yes caffeine: Yes Dental Care, Regularly: Yes Physical Activity Frequency: Daily Physical Activity Frequency Comment: walk and active lifestyle Seatbelt Use: always Sunscreen Use: Yes Do you think of yourself as: straight/heterosexual Assistive Devices: None Review of Systems Constitutional: + fatigue; no fever and no weakness Eyes: no diplopia, no eye pain and no worsening vision Ear, Nose, Mouth, Throat: no ear pain, no tinnitus, no hearing loss, no dizziness, no hoarseness and no dysphagia Respiratory: no cough and no dyspnea Cardiovascular: no chest pain, no palpitations and no lightheadedness Gastrointestinal: no abdominal pain, no nausea and no vomiting Genitourinary: no dysuria, no urinary frequency and no urinary incontinence Musculoskeletal: no back pain, no neck pain, no radicular pain, no joint pain and no myalgia Integumentary: no rash and no lesions Neurologic: no gait abnormality, no localized weakness, no generalized weakness, no tingling, no numbness, no tremor(s), no abnormal movements, no headache(s), no abnormal speech, no confusion and no memory loss Psychiatric: no depression, no irritability, no anxiety, no difficulty conc entrating, no confusion and no hallucinations Endocrine: no fatigue and no flushing Hematologic / Lymphatic: no easy bleeding and no easy bruising Allergy / Immunological: no urticaria and no problem reported Exam (Neuro) Physical Exam: The patient is right-handed. The patient is awake, alert, and attentive. Speech is normal without any aphasia or dysarthria. The patient can name objects, repeat phrases, and has normal s pontaneous speech. Mentation and thought processes are intact, with orientation to person, place and time, and normal fund of knowledge. Attention and concentration are normal. Mood and affect are normal and appropriate. General appearance and grooming are normal. Short and long-term memory are intact. The discs are sharp with positive venous pulsations bilaterally. There are no exudates, hemorrhages, or blood vessel changes seen. Pupils are 4 mm bilaterally and reactive to light. Extraocular eye muscles are intact without nystagmus. Visual acuity and visual wiseman seem normal grossly to confrontation. There are no deficits to sensation in the face in all 3 distributions of the fifth cranial nerve bilaterally. Corneal reflexes are positive bilaterally. Facial strength and symmetry was normal bilaterally. Hearing seems normal bilaterally. Palate moves well without asymmetry. There is normal sternocleidomastoid and trapezius (shoulder shrug) strength bilaterally. Tongue is midline with good strength bilaterally. Neck has a full range of motion without discomfort. There are no cervical bruits bilaterally. There are no cranial or ocular bruits. Heart is without murmur. There is a regular rhythm and rate. Cervical, thoracic, and lumbar spine are nontender to palpation. Gait is narrow based, with good arm swing, turns, and stance. Balance is normal eyes open or closed. With outstretched arms there is no drift. There are no resting, postural, or action tremors. There is no ataxia with finger to nose testing. There is good facility in the hands. No other abnormal involuntary movements are noted. Motor strength is 5/5 diffusely in the arms bilaterally including deltoids, biceps, triceps, brachioradialis, wrist flexors and extensors, order checker packer processer, and intrinsic hand muscles. Motor strength is 5/5 diffusely in the legs bilaterally including hip flexors, quadriceps, hamstrings, gastrocnemius, tibialis anterior, tibialis posterior, and Peroneii muscles. Toe extensors are normal and there is good bulk in the extensor digitorum brevis muscles bilaterally. The limbs have good tone without rigidity or spasticity. There is no atrophy noted in the muscles. Muscle bulk is normal, there is no tenderness to palpation, no myotonia to percussion, and no fasciculations seen. Sensory examination is intact to touch and pin throughout all 4 limbs diffusely. Reflexes are 2/4 in the biceps, triceps, brachioradialis, quadriceps, and Achilles tendons bilaterally. There is no clonus bilaterally. Toes are downgoing with plantar stimulation bilaterally. Peripheral pulses are present and of normal quality distally in all 4 limbs. There is no peripheral edema noted in the limbs. Results & Data ([facility]) Vital Signs (Past 12 Hours) Vital Signs Temp Pulse Pulse Resp BP Pulse Ox 01/01/21 07:49 37.1 C 64 18 151/83 H 97 01/01/21 07:00 57 L 01/01/21 03:18 36.8 C 82 18 120/70 97 01/01/21 02:57 65 12/31/20 22:22 36.9 C 66 18 145/79 H 93 PG Care Time/CCT Total # of Minutes Spent Total Time Spent with Patient: Total time spent is greater than 50% in coordination of care (as documented) at patient's floor/unit and/or counseling patient: Coding Level of Care Code 68667 Office/Outpt Visit, New Diagnoses Confusion R41.0 Hypertension I10 Hypomagnesemia E83.42
[2021-01-01 11:41] VITALS: BP 118/74; PULSE 62; TEMP 98.6; O2SAT 96
--- NOTE | 2021-01-01 18:12 | Discharge Summary ---
Date of Service January 01, 2021 Admission HPI Per Admitting Provider This is a 68-year-old female with past medical history of hypertension, hyperlipidemia, COPD, and previous lung cancer who presents complaining confusion and dysarthria. Patient is a poor historian as she has pressured speech and jumps topics. Son is at bedside is able to fill in some details. Patient states that over the past week or 2 she has been having episodes of confusion, this seems to be very intermittent. Yesterday evening she had rigors with shaking that was quite severe. The son works very locally and calls the patient every day at around 9 AM. He said that today he was having difficulty understanding her because she seemed to be confused. In addition, she had trouble speaking. When questioned further, the problem was projecting her voice more so than aphasia. He went to get the patient to bring to the ER. He noted that she was generally weak without any focal symptoms. Did not notice any facial droop or slurring of speech. At the time of my evaluation, the patient seems to be at her baseline per the son. Her speech is fluid and normal for her without any breathlessness. I also did not appreciate any tremor or rigor. Work-up in the emergency room was essentially negative outside of a magnesium of 1.5 which is currently being repleted IV. Principal Diagnosis Hypertension; Atypical Neurological Symptoms Discharge Exam PHYSICAL EXAM General Appearance: WDWN in NAD who is A&O x 3 HEENT: Head is normocephalic/atraumatic; EOMI; PERRLA; Hearing grossly intact; Mucous membranes moist; Pharynx negative for exudate/lesions Neck: Supple; Trachea midline; Neg JVD Heart: RRR with no M/G/R Lungs: CTA in all lung wiseman bilaterally; Respirations unlabored; Neg accessory muscle use Abdomen: Soft, non-tender, non-distended; Positive BS x 4 quadrants Extremities: Capillary refill < 2 seconds; Neg cyanosis or edema Neurological: Speech clear; Gross motor/sensory function intact; Neg focal neurologic deficits Psychiatric: Appropriate mood/affect Skin: Normal Color; Warm/Dry; Neg rashes, ecchymosis, lacerations/ulcerations Discharge Data Allergies Allergy/AdvReac Type Severity Reaction Status Date / Time tetanus toxoid, adsorbed Allergy Severe ANAPHYLAXIS Verified 12/31/20 14:17 prednisone Allergy Intermediate rash, CRUZ, Verified 12/31/20 14:17 nausea tiotropium Allergy Unknown UNKNOWN Verified 12/31/20 14:17 varenicline Allergy Unknown UNKNOWN Verified 12/31/20 14:17 ibuprofen AdvReac Mild GI SYMPTOMS Verified 12/31/20 14:17 ranitidine AdvReac Mild MIGRAINES Verified 12/31/20 14:17 alendronate sodium AdvReac Tremor, Verified 12/31/20 14:17 sweating Tartrazine Allergy Unknown UNKNOWN Uncoded 12/31/20 14:17 Potassium [place] AdvReac Mild HEADACHE Uncoded 12/31/20 14:17 Consultations 12/31/20 13:45 ED Decision to Admit Stat 12/31/20 18:33 Consult Neurology Routine Ordered Studies Chest X-Ray 12/31/20 11:29 XR chest 1V portable CLINICAL HISTORY: Weakness. Confusion. COMPARISON STUDY: Chest CT October 16, 2020. FINDINGS: Lung volumes are normal. Lungs are clear. There is no pneumothorax or pleural effusion. Cardiac size is normal. Mediastinal contours are normal. There is no evidence for pulmonary edema. Left lung volume loss is unchanged following left upper lobectomy. IMPRESSION: No acute cardiopulmonary findings. No change in appearance of the chest. ACT 112: Negative or not required by law. Electronically signed by: Toni Will M.D. 12/31/2020 12:[address] 12/31/20 11:29 CT OF THE HEAD WITHOUT CONTRAST CLINICAL HISTORY: Weakness. Confusion. COMPARISON STUDY: MRI of the brain August 02, 2017. CT DOSE: 537.48 mGy.cm TECHNIQUE: Helical axial images of the head were obtained without IV contrast. Automated exposure control was utilized for the study. A dose lowering technique was utilized adhering to the principles of ALARA. FINDINGS: No acute intracranial hemorrhage, midline shift or mass effect is present. Mild white matter hypodensities favor small vessel disease. The ventricular system is unremarkable. The basal cisterns are patent. No extra- axial collections are present. There are no findings to suggest acute dural sinus thrombosis or acute territorial infarct. No significant calvarial abnormalities are present. Visualized portions of the sinuses and mastoid air cells are clear. IMPRESSION: No acute intracranial findings. ACT 112: Negative or not required by law. Electronically signed by: Toni Will M.D. 12/31/2020 12:05 PM Brain MRI 12/31/20 16:08 MRI OF THE BRAIN WITHOUT IV CONTRAST CLINICAL HISTORY: Change in mental status. COMPARISON STUDY: CT of the brain dated 12/31/2020. MRI of the brain dated 08/02/2017. TECHNIQUE: MRI of the brain was performed utilizing various T1 and T2-weighted sequences in the axial, sagittal, and coronal planes. IV contrast was not administered for this examination. FINDINGS: Brain parenchyma: There is age-related involutional change noting mild microangiopathic disease. There is no hemorrhage or mass effect. There is no restricted diffusion to suggest acute ischemia. A chronic lacunar infarct is noted in the left cerebellar hemisphere. Roque-white matter differentiation is preserved. No extra-axial fluid collection is seen. The cerebellar tonsils are normal in configuration. Ventricles, sulci, and cisterns: Prominent secondary to involutional change. Pituitary and sella: Unremarkable. Intracranial vasculature: Normal flow voids are maintained at the skull base. Orbits: The bony orbits are grossly intact. Orbital contents are normal in appearance noting bilateral ocular lens implants. Sinuses and mastoids: Clear. Calvarium: Unremarkable. Cervical cord: Partially visualized cervical spinal cord is normal in morphology and signal intensity. IMPRESSION: No acute intracranial abnormality. ACT 112: Negative or not required by law. Electronically signed by: Marino Silva M.D. 12/31/2020 6:09 PM Hospital Course (1) Hypertension: - Patient presented with rigors and confusion - which seemed to span >24 hours and were intermittent and not consistent with a TIA; workup did not reveal a new CVA -- MRI did reveal small vessel changes and a chronic lacunar infarct but this would not explain the symptoms - It appears she has been dealing with increased allergies and felt her Menieres flared up again and took meclizine; due to feeling unwell she did not take her blood pressure medications x 2 days -- She reported to the ED with systolic pressure at 202 which improved with resuming home medications with D/C BP at 118/74 which is her average (she checks BPs at home) -- Suspect this may have been the ultimate cause of her presentation - Symptoms were completely resolved upon arrival to ED - No infectious etiology identified; Lyme negative; A. phagocyophilum pending - Magnesium was mildly low and repleted - Neuro evaluated - please see their notes for their assessment and plan - Discussed with patient to contiue her home medications and keep a BP log to present to her PCP - if pressures are still running high could consider medication adjustments (2) Hyperlipidemia: - Review of previous labs revealed elevated studies - Recommend her to discuss with PCP as these studies were from July so maybe taking a dietary approach (3) Chronic obstructive pulmonary disease: - Stable - H/O lung CA with wedge resection as well - Continue Albuteral PRN Total Time Total Time Spent Total Time Spent (In Minutes): Greater than 30 minutes Discharge Plan Discharge Items Patient Disposition: Home - Self-Care Reason For Visit: CONFUSION Discharge Diagnosis: High Blood Pressure; Low Magnesium Activity: Resume your previous activity Non-emergency contact: Primary Care Provider Call non-emergency contact if: you have any medication questions and your symptoms worsen Follow-up/Referrals: Enrrique Sanz DO [Primary Care Provider] - 01/10/21 9:20 am () Diet: Regular Addtl Attending Provider Instructions: Confusion and Weakness: - Thankfully your workup here in the hospital did not reveal anything. - There is no signs of infection by looking at your blood work, your chest xray does not show pneumonia, your urine does not reveal a urinary tract infection, and your skin looks good - You had a head CT and a head MRI that did not reveal a new stroke. -- There was some age-related changes of the very tiny vessels which is a normal finding as we get older and with people who have had high blood pressure. High blood pressure over time can cause some small vessel damage but would not explain your symptoms. There is also a old lacunar infarct. This is a tiny little area that was likely the result of high blood pressure but this is old and could have been there a long time and would not explain your symptoms either. - You did have a slightly low magnesium level which can give nausea, weakness, fatigue, tremors, and muscle spasms but yours was only 1.5 and normal is 1.7. You can take magnesium supplements over the counter or a multivitamin that has it in it. For the most part you get in normally in your diet. Likely from feeling under the weather over the past couple days your eating wasn't your normal - We did send out a Lyme test but it will take a few days to come back and can be reviewed with your family doctor - The high blood pressure is likely the biggest culprit of your symptoms and will discuss this below High Cholesterol: - Please talk with your doctor about high cholesterol and whether you need to have medication to better control this - A lot of times dietary and exercise changes can help bring these numbers down without medicine so please talk with your doctor because controlled cholesterol helps reduce heart disease and stroke risk - Your cholesterol was 217, the triglycerides were 314, and your LDL (bad cholesterol) is 113 and we would like to see those numbers a bit lower High Blood Pressure: - It is possible that your allergies could have flared up your M[place] over the past couple days. Both of these conditions could have given you the feelings you had. - Since you did not take your blood pressure medications for the past couple days you likely had a rebound effect which can actually cause your blood pressure to go pretty high. - Your blood pressure was 202/97 when you came to the hospital and now it is down to 118/74. Having such a drastic rise in blood pressure can produce all the symptoms you presented to especially the headaches, the word findings issues... - This is likely due to missing those doses. I think the best option is to continue your current medications and monitor your blood pressure. Keep a log of your pressures. Write down time you took it and how you are feeling. This will help your family doctor see how you are running -- Since you didn't take you medications and now your blood pressure is better, I do not want to add another medication and risk dropping your blood pressure down too low -- If it is still running high when you see your doctor it may be worth adding an additional blood pressure medication to help get the control needed - You were seen by a neurologist who does not feel this was a TIA or what people call a "mini stroke" and there is no stroke on imaging. - Given history of high blood pressure and with higher cholesterol taking a baby aspirin daily would not be a bad idea. An aspirin 81 mg daily is an anteplatelet that we use to help reduce some risk of heart attacks/strokes. This can be discussed with your family doctor as well. I will send a prescription but this is over the counter. You can discuss this with your family doctor first before taking if you would prefer that. We will arrange a follow-up appointment with your family doctor. If you do not hear from someone in the next couple days please call your family doctor and say your were in the hospital. Pending Studies at Discharge: No Stand-Alone Forms: My [facility], Smoking Cessation Medications and DC Order Prescriptions: New aspirin 81 mg tablet,delayed release (DR/EC) 81 mg PO DAILY 30 Days Qty: 30 RF: 0 Continued hydroxyzine HCl 25 mg tablet 25 mg PO HS PRN (Reason: Depression, anxiety) Qty: 30 RF: 1 albuterol sulfate [Ventolin HFA] 90 mcg/actuation HFA aerosol inhaler 1 - 2 puffs inhalation Q4H PRN (Reason: Shortness Of Breath) Qty: 18 RF: 5 amitriptyline 25 mg tablet 25 mg PO HS Qty: 90 RF: 1 meclizine 12.5 mg tablet 12.5 mg PO BID PRN (Reason: Dizziness) Qty: 60 RF: 5 tramadol 50 mg tablet 50 mg PO Q6H PRN (Reason: Pain) RF: 0 cholecalciferol (vitamin D3) 1,000 unit (25 mcg) tablet 1,000 units PO QAM RF: 0 docusate sodium 100 mg tablet 100 mg PO BID PRN (Reason: Constipation) RF: 0 ammonium lactate 12 % lotion 1 applic topical BID PRN (Reason: dry skin) Qty: 1 RF: 0 Linzess 72 mcg capsule 72 mcg PO DAILY PRN (Reason: Pain) RF: 0 triamterene-hydrochlorothiazid 37.5-25 mg capsule 1 cap PO QAM RF: 0 metoprolol succinate 25 mg tablet extended release 24 hr 25 mg PO QAM RF: 0 Discharge Orders: Discharge Order (Routine); Ordered 01/01/21 Ordered By: Bia Hewitt Admission Data Admit Date/Time: 12/31/20 16:08 Attending Provider: Robert Castillo Admit Provider: Dennis Hale Primary Care Provider: Enrrique Sanz Other Providers: Dennis Hale ; Brandin Mason Other Interventions: Discharge Summary Assessment (RN) Last Done: 01/01/21 14:30 Supervising Physician Co-Signing Physician Notes Attending note: patient seen and examined with Bia Hewitt PA-C. I agree with her discharge summary. I personally reviewed the labs and imaging findings. patient feeling much better with blood pressure adequately controlled no further dizziness MRI brain was normal discussed case with Dr. Mason, appreciate his input - Hypertensive encephalopathy, urgency spike in BP after she stopped her medications on her own BP much better with resuming medications MRI brain normal no further dizziness educated patient on importance of compliance, danger of rebound HTN with abruptly stopping medications Coding Level of Care Code D/C DAY MANAGEMENT >30 MINS Diagnoses Hypertension I10 Hyperlipidemia E78.5 Chronic obstructive pulmonary disease J44.9
== END 2021-01-01 15:37 | disposition home or self-care (01) ==
LOC: 2N 10:50 → ED 10:50 → SUATTDRO 16:08 → 2N 17:15